=== PATIENT | female | born 1965 | race Caucasian/White ===

== ENCOUNTER → 2016-03-29 | Outpatient (CLI) | payer OTHER ==
[2016-03-29 12:59] LABS: C Reactive Protein 5.4 mg/L (<10.0); Rheumatoid Factor, Qnt <9 IU/mL (<12)
[2016-03-29 13:03] LABS: Hepatitis B Surface Ag Index 0.09
[2016-03-29 13:08] LABS: Hepatitis B Core IgM Index 0.07
[2016-03-29 13:21] LABS: Hepatitis C Virus IgG Index 0.02
[2016-03-29 13:23] LABS: Hepatitis B Surface Antibody Negative (Negative); Hepatitis C Virus IgG Ab Negative (Negative)
[2016-03-29 17:24] LABS: ANA w/Reflex to Titer NEGATIVE (NEGATIVE)
[2016-03-30 05:56] LABS: Cyclic Citrullinated Pep IgG 4 UNITS (<20)
[2016-03-30 07:24] LABS: HIV-1/HIV-2 Ab Screen NONREAC (NON REAC)
[2016-03-30 13:03] LABS: Scleroderma 70 Antibody 2 UNITS (<20)
== END | disposition home or self-care (01) ==
LOC: LABWHC1 11:29
PROVIDERS: ATTEND Internal Medicine
DX: M25.50 Pain in unspecified joint (principal); R06.02 Shortness of breath
CPT/HCPCS: 36415; 82103; 82104; 85652; 86038; 86140; 86200; 86225; 86226; 86235; 86431; 86705; 86706; 86708; 86803; 87340; 87389

== ENCOUNTER 2016-05-04 12:21 | Observation (INO) | payer OTHER ==
[2016-05-04] MEDS ORDERED: ONDANSETRON 4 MG/2 ML VIAL IVP STA (14:14)
[2016-05-04] MEDS ORDERED: SODIUM CHLORIDE 0.9% 1,000 ML IV ONE (14:14)
[2016-05-04] MEDS ORDERED: RX INFO: IV CONTRAST WAS GIVEN 1 EACH MISC MISCELLANE PRN (14:14)
[2016-05-04] MEDS ORDERED: MORPHINE SULFATE 4 MG/ML SYRINGE IVP STA (14:14)
[2016-05-04 14:53] LABS: Basophils % (A) 0 %; CH 32.8; CHCM 32.9; Eosinophils # (A) 0.1 k/uL (0-0.7); Eosinophils % (A) 1 %; HCT 50.3 % (34.0-46.0); HDW 2.35; HGB 16.4 gm/dL (11.4-16.0); Luc # (Auto) 0.09; Luc % (Auto) 1; Lymphocytes # (A) 1.2 k/uL (1.0-4.8); Lymphocytes % (A) 7 %; MCH 32.5 pg (25.0-35.0); MCHC 32.5 g/dL (31.0-37.0); MCV 99.9 fL (80.0-100.0); Mean Platelet Volume 7.3; Monocytes # (A) 0.4 k/uL (0-1.0); Monocytes % (A) 3 %; Neutrophils # (A) 14.1 k/uL (1.3-7.7); Neutrophils % (A) 88 %; RBC 5.04 m/uL (3.80-5.40); RDW 13.4 % (11.5-15.5); WBC 15.9 k/uL (3.8-10.6); WBC (Perox) 15.95
[2016-05-04 15:01] LABS: ALT 28 U/L (9-52); AST 29 U/L (14-36); Alkaline Phosphatase 87 U/L (38-126); Anion Gap 13 mmol/L; Blood Urea Nitrogen 18 mg/dL (7-17); Calcium 9.8 mg/dL (8.4-10.2); Carbon Dioxide 21 mmol/L (22-30); Chloride 108 mmol/L (98-107); Glucose 98 mg/dL (74-99); Non-African American GFR(MDRD) >60 (>60 ml/min/1.73 sqM); Sodium 142 mmol/L (137-145); Total Bilirubin 1.2 mg/dL (0.2-1.3); Total Protein 7.9 g/dL (6.3-8.2)
[2016-05-04 15:03] LABS: Potassium 4.2 mmol/L (3.5-5.1)
[2016-05-04 15:07] LABS: INR 1.1 (<1.1); Partial Thromboplastin Time 24.7 sec (22.0-30.0); Prothrombin Time 10.8 sec (9.0-12.0)
[2016-05-04 15:36] LABS: Appearance,Urine Clear (Clear); Bilirubin,Urine Negative (Negative); Glucose,Urine (UA) Negative (Negative); Ketones,Urine Negative (Negative); Leukocyte Esterase,Urine Negative (Negative); Nitrite,Urine Negative (Negative); Protein,Urine Trace (Negative); Specific Gravity,Urine 1.015 (1.001-1.035); UA Billing (MACRO vs. MICRO) CHEM; Urobilinogen,Urine <2.0 mg/dL (<2.0)
--- NOTE | 2016-05-04 15:56 | CT ---
EXAMINATION TYPE: CT abdomen pelvis w con DATE OF EXAM: 05/04/2016 3:33 PM COMPARISON: NONE HISTORY: 50-year-old female with generalized abdominal pain, nausea, vomiting, diarrhea, and bloody s tool. TECHNIQUE: Contiguous axial scanning of the abdomen and pelvis following administration of 100 ml Omn ipaque 300 IV contrast. Delayed images through the kidneys and coronal/sagittal reconstructions perf ormed. CT DLP: 460.2 mGycm Automated exposure control for dose reduction was used. FINDINGS: The heart is normal size without pericardial effusion. Lung bases clear without pleural effusion. Hypervascular 1.5 cm lesion right hepatic dome that follows blood pool on delayed kidney images sugge stive of a flash filling hemangioma. Additional large partially exophytic 4.7 cm hemangioma showing p eripheral nodular enhancement and fill-in centrally in the liver. Some focal fat along the anterior f alciform ligament. Portal venous system is patent. No biliary ductal dilatation. Gallbladder, adrenal glands, left kidney, spleen, and pancreas within normal limits. 6 mm nonobstructive calculus lower pole right kidney. No dilated small bowel or free air. The appendix is not clearly seen. There is mild diffuse colonic wall thickening beginning from the hepatic flexure distally to the rect um but with more moderate to severe circumferential wall thickening and mural edema beginning from th e upper descending colon through the mid sigmoid colon. Moderate pericolonic inflammation and edema i s present along this level. There is sigmoid diverticulosis also present but inflammatory changes are not particularly centered in this region. No mesenteric or retroperitoneal lymphadenopathy seen. Bladder is nondistended. Uterus and ovaries are visualized. No abnormal fluid collection in the pelvi s or pelvic lymphadenopathy seen. Bones: Mild degenerative changes at the hips. No osseous destructive process. IMPRESSION: 1. PANCOLITIS WITH MODERATE TO SEVERE WALL THICKENING AND INFLAMMATION FROM THE UPPER DESCENDING COLO N TO THE MID SIGMOID. FINDINGS COULD BE INFECTIOUS OR INFLAMMATORY. 2. WHILE THERE IS PROXIMAL TO MID SIGMOID DIVERTICULOSIS, INFLAMMATORY CHANGES ARE NOT LIMITED TO THI S SEGMENT, ARGUING AGAINST ACUTE DIVERTICULITIS. 3. NONOBSTRUCTIVE 6 MM RIGHT RENAL CALCULUS. 4. INCIDENTAL 4.7 CM CENTRAL HEPATIC HEMANGIOMA AND SUSPECTED 1.5 CM HEPATIC DOME FLASH FILLING HEMAN GIOMA.
[2016-05-04] MEDS ORDERED: ONDANSETRON 4 MG/2 ML VIAL IVP PRN (16:49)
[2016-05-04] MEDS ORDERED: NALOXONE 0.4 MG/ML 1 ML VIAL IV PRN (16:49)
[2016-05-04] MEDS ORDERED: PANTOPRAZOLE 40 MG/10 ML VIAL IVP ONE (16:53)
--- NOTE | 2016-05-04 16:54 | ED ---
General Adult HPI - General Chief complaint: GI Bleed Stated complaint: Rectal bleeding Time Seen by Provider: 05/04/16 13:16 Source: patient Mode of arrival: ambulatory Limitations: no limitations - History of Present Illness Initial comments: 50-year-old female presenting for evaluation of GI bleed starting today. She states having multiple bouts of bright red rectal blood per rectum occurring about every 2 hours. She states is associated nausea and vomiting and generalized abdominal pain. Onset was sudden and there are otherwise no associated symptoms. She denies associated chest pain, shortness breath, fevers , chills, lightheadedness, dizziness. She has no history of GI bleeds and denies chronic NSAID use currently although in the past she was taking them more frequently. Last colonoscopy was 25 years ago. He has no GI specialist as outpatient. - Related Data Home Medications Medication Instructions Recorded Confirmed Albuterol Inhaler [Ventolin Hfa 2 puff INHALATION RT-Q6H PRN 12/28/15 05/04/16 Inhaler] Calcium Carbonate [Calcium] 600 mg PO BID 12/28/15 05/04/16 LORazepam [Ativan] 1 mg PO TID 12/28/15 05/04/16 Multivitamin [Multivitamins Adult 1 tab PO DAILY 12/28/15 05/04/16 Gummies] [place]-3 Fatty Acids/Fish Oil [Fish 1 cap PO BID 12/28/15 05/04/16 Oil 1,000 mg Softgel] PARoxetine [Paxil] 20 mg PO DAILY 12/28/15 05/04/16 Flunisolide [Aerospan] 2 puff INHALATION RT-BID 05/04/16 05/04/16 HYDROcodone/APAP 5-325MG [[place] 1 tab PO Q4HR PRN 05/04/16 05/04/16 5-325] predniSONE See Taper PO DAILY 05/04/16 05/04/16 Previous Rx's Medication Instructions Recorded Nicotine 14Mg/24Hr Patch [Habitrol] 1 patch TOPICAL DAILY #30 patch 01/05/16 Allergies Allergy/AdvReac Type Severity Reaction Status Date / Time azithromycin [From Zithromax] Allergy Rash/Hives Verified 05/04/16 14:32 cephalexin [From Keflex] Allergy Rash/Hives Verified 05/04/16 14:32 Review of Systems ROS Statement: Those systems with pertinent positive or pertinent negative responses have been documented in the HPI. ROS Other: All systems not noted in ROS Statement are negative. Constitutional: Denies: fever, chills, weakness Eyes: Denies: eye pain, eye discharge ENT: Denies: ear pain, throat pain Respiratory: Denies: cough, dyspnea Cardiovascular: Denies: chest pain, palpitations Endocrine: Denies: polydipsia, polyuria Gastrointestinal: Reports: abdominal pain, nausea, vomiting, diarrhea, hematochezia. Denies: hematemesis, melena Genitourinary: Denies: urgency, dysuria Musculoskeletal: Denies: back pain, myalgia Skin: Denies: rash, lesions Neurological: Denies: headache, weakness Psychiatric: Denies: anxiety, depression Hematological/Lymphatic: Denies: easy bleeding, easy bruising Past Medical History Past Medical History: COPD, Eye Disorder, Osteoarthritis (OA) Additional Past Medical History / Comment(s): FLOATERS IN EYES. JOHANNE LUNG MASS CURRENTLY. STATED HAD A PNE VACCINE APPROX 3 YEARS AGO NOT SURE OF DATE History of Any Multi-Drug Resistant Organisms: None Reported Past Surgical History: Tubal Ligation Additional Past Surgical History / Comment(s): TUBAL PREG. COLONOSCOPY.BX OF LT UPPER LUNG Past Anesthesia/Blood Transfusion Reactions: No Reported Reaction Past Psychological History: Anxiety, Depression, Panic Disorder Smoking Status: Current every day smoker Past Alcohol Use History: None Reported Additional Past Alcohol Use History / Comment(s): SMOKED 35 PLUS YEARS, 1 PPD AVG, TRYING TO QUIT. Past Drug Use History: Marijuana Additional Drug Use History / Comment(s): OCC MARIJUANA - Past Family History Mother Family Medical History: Myocardial Infarction ([place]) Additional Family Medical History / Comment(s): SEVERAL VT'S,TORREY ONE IN HER LASTE 40'S Father Family Medical History: COPD, Myocardial Infarction ([place]) Additional Family Medical History / Comment(s): EMPHYSEMA General Exam Limitations: no limitations General appearance: alert, in distress (Mild) Head exam: Present: atraumatic, normocephalic Eye exam: Present: normal appearance, PERRL, EOMI Pupils: Present: normal accommodation. Absent: unequal ENT exam: Present: normal exam, normal oropharynx Neck exam: Present: normal inspection. Absent: tenderness Respiratory exam: Present: normal lung sounds bilaterally. Absent: respiratory distress, wheezes, rales, rhonchi, stridor Cardiovascular Exam: Present: normal rhythm, tachycardia, normal heart sounds. Absent: regular rate GI/Abdominal exam: Present: soft, tenderness. Absent: distended, guarding, rebound, rigid Rectal exam: Present: normal rectal tone, heme (+) stool, bloody stool, hemorrhoids. Absent: decreased rectal tone Extremities exam: Present: normal inspection, full ROM Back exam: Present: normal inspection, full ROM Neurological exam: Present: alert, oriented X3, CN II-XII intact, normal gait. Absent: altered Psychiatric exam: Present: normal affect, normal mood Skin exam: Present: warm, dry, intact Course Vital Signs 05/04/16 05/04/16 12:54 16:27 Temperature 97.9 F Pulse Rate 118 H 89 Respiratory 20 16 Rate Blood Pressure 125/72 127/76 O2 Sat by Pulse 98 95 Oximetry EKG Findings - EKG Comments: EKG Findings:: Normal sinus rhythm with nonspecific ST and T-wave abnormalities with ventricular rate of 98, BRAD 1:30 QRS 72, QT/QTC 328/418. Medical Decision Making - Medical Decision Making 50-year-old female presented for evaluation of bright red blood per rectum that started this morning and continued roughly every 2 hours throughout the rest of the day. She states she is unsure if she has any hemorrhoids or fissures and further confirms that she has not had symptoms like this for 25 years. On physical examination she is in mild distress laying on the bed and does not appear pale. She is tachycardic but normotensive. There is generalized abdominal tenderness to palpation but abdomen is soft without peritoneal signs of guarding, rigidity, or rebound. Her history is for bright red blood per rectum and this is likely due to lower GI etiology however considering fast transit from upper GI bleed is also on differential. She does have vomiting without hematemesis however. We'll obtain labs, EKG, chest x-ray , CT abdomen, and provide IV fluids pain control and Zofran. Labs significant for leukocytosis and occult blood positive stool. Digital rectal exam showed hemorrhoids however there was gross blood from within the rectal vault with small clots. CT abdomen shows pancolitis with moderate to severe wall thickening and inflammation from the upper descending colon to the mid sigmoid. There is also an incidental finding of a 4.7 cm central hepatic hemangioma and suspected 1.5 cm hepatic dome flash filling hemangioma. The patient was informed of these findings including the incidental an angioma. She is further informed that she be omitted for further treatment and evaluation. Dr. Claros was updated on the status of this patient and accepted admission with request for consult with GI. Admission order placed in bed request submitted. - Lab Data Result diagrams: 05/04/16 14:00 05/04/16 14:00 Lab Results 05/04/16 05/04/16 05/04/16 Range/Units 14:00 14:00 14:00 WBC 15.9 H (3.8-10.6) k/uL RBC 5.04 (3.80-5.40) m/uL Hgb 16.4 H (11.4-16.0) gm/dL Hct 50.3 H (34.0-46.0) % MCV 99.9 (80.0-100.0) fL MCH 32.5 (25.0-35.0) pg MCHC 32.5 (31.0-37.0) g/dL RDW 13.4 (11.5-15.5) % Plt Count 160 (150-450) k/uL Neutrophils % 88 % Lymphocytes % 7 % Monocytes % 3 % Eosinophils % 1 % Basophils % 0 % Neutrophils # 14.1 H (1.3-7.7) k/uL Lymphocytes # 1.2 (1.0-4.8) k/uL Monocytes # 0.4 (0-1.0) k/uL Eosinophils # 0.1 (0-0.7) k/uL Basophils # 0.0 (0-0.2) k/uL PT (9.0-12.0) sec INR (<1.1) APTT (22.0-30.0) sec Sodium 142 (137-145) mmol/L Potassium 4.2 (3.5-5.1) mmol/L Chloride 108 H (98-107) mmol/L Carbon Dioxide 21 L (22-30) mmol/L Anion Gap 13 mmol/L BUN 18 H (7-17) mg/dL Creatinine 0.83 (0.52-1.04) mg/dL Est GFR (MDRD) Af Amer >60 (>60 ml/min/1.73 sqM) Est GFR (MDRD) Non-Af >60 (>60 ml/min/1.73 sqM) Glucose 98 (74-99) mg/dL Plasma Lactic Acid Fredis (0.7-2.0) mmol/L Calcium 9.8 (8.4-10.2) mg/dL Total Bilirubin 1.2 (0.2-1.3) mg/dL AST 29 (14-36) U/L ALT 28 (9-52) U/L Alkaline Phosphatase 87 (38-126) U/L Troponin I (0.000-0.034) ng/mL NT-Pro-B Natriuret Pep 630 pg/mL Total Protein 7.9 (6.3-8.2) g/dL Albumin 4.7 (3.5-5.0) g/dL Lipase 55 (23-300) U/L Urine Color Urine Appearance (Clear) Urine pH (5.0-8.0) Ur Specific [place] (1.001-1.035) Urine Protein (Negative) Urine Glucose (UA) (Negative) Urine Ketones (Negative) Urine Blood (Negative) Urine Nitrite (Negative) Urine Bilirubin (Negative) Urine Urobilinogen (<2.0) mg/dL Ur Leukocyte Esterase (Negative) Stool Occult Blood (Negative) Blood Type Blood Type Recheck Antibody Screen Spec Expiration Date 05/04/16 05/04/16 05/04/16 Range/Units 14:00 14:00 15:14 WBC (3.8-10.6) k/uL RBC (3.80-5.40) m/uL Hgb (11.4-16.0) gm/dL Hct (34.0-46.0) % MCV (80.0-100.0) fL MCH (25.0-35.0) pg MCHC (31.0-37.0) g/dL RDW (11.5-15.5) % Plt Count (150-450) k/uL Neutrophils % % Lymphocytes % % Monocytes % % Eosinophils % % Basophils % % Neutrophils # (1.3-7.7) k/uL Lymphocytes # (1.0-4.8) k/uL Monocytes # (0-1.0) k/uL Eosinophils # (0-0.7) k/uL Basophils # (0-0.2) k/uL PT 10.8 (9.0-12.0) sec INR 1.1 (<1.1) APTT 24.7 (22.0-30.0) sec Sodium (137-145) mmol/L Potassium (3.5-5.1) mmol/L Chloride (98-107) mmol/L Carbon Dioxide (22-30) mmol/L Anion Gap mmol/L BUN (7-17) mg/dL Creatinine (0.52-1.04) mg/dL Est GFR (MDRD) Af Amer (>60 ml/min/1.73 sqM) Est GFR (MDRD) Non-Af (>60 ml/min/1.73 sqM) Glucose (74-99) mg/dL Plasma Lactic Acid Fredis (0.7-2.0) mmol/L Calcium (8.4-10.2) mg/dL Total Bilirubin (0.2-1.3) mg/dL AST (14-36) U/L ALT (9-52) U/L Alkaline Phosphatase (38-126) U/L Troponin I <0.012 (0.000-0.034) ng/mL NT-Pro-B Natriuret Pep pg/mL Total Protein (6.3-8.2) g/dL Albumin (3.5-5.0) g/dL Lipase (23-300) U/L Urine Color Yellow Urine Appearance Clear (Clear) Urine pH 7.0 (5.0-8.0) Ur Specific [place] 1.015 (1.001-1.035) Urine Protein Trace H (Negative) Urine Glucose (UA) Negative (Negative) Urine Ketones Negative (Negative) Urine Blood Negative (Negative) Urine Nitrite Negative (Negative) Urine Bilirubin Negative (Negative) Urine Urobilinogen <2.0 (<2.0) mg/dL Ur Leukocyte Esterase Negative (Negative) Stool Occult Blood (Negative) Blood Type Blood Type Recheck Antibody Screen Spec Expiration Date 05/04/16 05/04/16 05/04/16 Range/Units 15:56 16:13 17:32 WBC (3.8-10.6) k/uL RBC (3.80-5.40) m/uL Hgb (11.4-16.0) gm/dL Hct (34.0-46.0) % MCV (80.0-100.0) fL MCH (25.0-35.0) pg MCHC (31.0-37.0) g/dL RDW (11.5-15.5) % Plt Count (150-450) k/uL Neutrophils % % Lymphocytes % % Monocytes % % Eosinophils % % Basophils % % Neutrophils # (1.3-7.7) k/uL Lymphocytes # (1.0-4.8) k/uL Monocytes # (0-1.0) k/uL Eosinophils # (0-0.7) k/uL Basophils # (0-0.2) k/uL PT (9.0-12.0) sec INR (<1.1) APTT (22.0-30.0) sec Sodium (137-145) mmol/L Potassium (3.5-5.1) mmol/L Chloride (98-107) mmol/L Carbon Dioxide (22-30) mmol/L Anion Gap mmol/L BUN (7-17) mg/dL Creatinine (0.52-1.04) mg/dL Est GFR (MDRD) Af Amer (>60 ml/min/1.73 sqM) Est GFR (MDRD) Non-Af (>60 ml/min/1.73 sqM) Glucose (74-99) mg/dL Plasma Lactic Acid Fredis 0.9 (0.7-2.0) mmol/L Calcium (8.4-10.2) mg/dL Total Bilirubin (0.2-1.3) mg/dL AST (14-36) U/L ALT (9-52) U/L Alkaline Phosphatase (38-126) U/L Troponin I (0.000-0.034) ng/mL NT-Pro-B Natriuret Pep pg/mL Total Protein (6.3-8.2) g/dL Albumin (3.5-5.0) g/dL Lipase (23-300) U/L Urine Color Urine Appearance (Clear) Urine pH (5.0-8.0) Ur Specific [place] (1.001-1.035) Urine Protein (Negative) Urine Glucose (UA) (Negative) Urine Ketones (Negative) Urine Blood (Negative) Urine Nitrite (Negative) Urine Bilirubin (Negative) Urine Urobilinogen (<2.0) mg/dL Ur Leukocyte Esterase (Negative) Stool Occult Blood Positive H (Negative) Blood Type B Positive Blood Type Recheck No Antibody Screen NEGATIVE Spec Expiration Date 05/07/2016 7199 Disposition Clinical Impression: GI bleed, Abdominal pain, Nausea and vomiting Disposition: ADMITTED IP TO THIS [facility] Referrals: Sebastián Claros MD [Primary Care Provider] - 1-2 days Decision to Admit Reason: Admit from EC Decision Date: 05/04/16 Decision Time: 16:54
[2016-05-04] MEDS: KETOROLAC 30 MG/ML 1 ML VIAL IVP PRN (18:42)
[2016-05-04] MEDS: SODIUM CHLORIDE 0.9% 1,000 ML IV SCH (18:42)
[2016-05-04] MEDS ORDERED: LEVOFLOXACIN 250MG-D5W PMX 250 MG in DEXTROSE/WATER 1 50ML.BAG IVPB STA (20:38)
[2016-05-04] MEDS ORDERED: metroNIDAZOLE-NS PMX 500 MG in SALINE 1 100ML.BAG IVPB STA (20:38)
[2016-05-04] MEDS: ALBUTEROL NEBULIZED 2.5 MG/3 ML INHALATION PRN (20:41)
[2016-05-04] MEDS: BUDESONIDE 0.5 MG/2 ML NEBU INHALATION SCH (20:41)
[2016-05-04] MEDS: LORazepam 1 MG TAB PO SCH (21:05)
[2016-05-04] MEDS: CALCIUM CARB-VIT D 500MG-200UN 1 EACH TAB PO SCH (21:12)
[2016-05-04] MEDS: MORPHINE SULFATE 4 MG/ML SYRINGE IV PRN (21:54)
[2016-05-05] MEDS: SODIUM CHLORIDE 0.9% 1,000 ML IV SCH ×2 (05:38→13:57)
[2016-05-05] MEDS: ALBUTEROL NEBULIZED 2.5 MG/3 ML INHALATION PRN ×2 (07:34→20:53)
[2016-05-05] MEDS: BUDESONIDE 0.5 MG/2 ML NEBU INHALATION SCH ×2 (07:34→20:53)
[2016-05-05] MEDS: NICOTINE 14MG/24HR PATCH TRANSDERM SCH (08:18)
[2016-05-05] MEDS: LORazepam 1 MG TAB PO SCH ×3 (08:18→21:28)
[2016-05-05] MEDS: CALCIUM CARB-VIT D 500MG-200UN 1 EACH TAB PO SCH ×2 (08:19→21:28)
[2016-05-05] MEDS: KETOROLAC 30 MG/ML 1 ML VIAL IVP PRN ×2 (08:22→15:03)
--- NOTE | 2016-05-05 08:34 | P.CONS ---
History of Present Illness - Reason for Consult Consult date: 05/05/16 Rectal bleeding Requesting physician: Sebastián Claros - History of Present Illness 50-year-old female with a history of benign left upper lung mass status post wedge biopsy December 2015, anxiety, depression, I disorder, long-standing nicotine cigarette dependency, occasional marijuana, and COPD. Presents with acute rectal bleeding that started yesterday morning with crampy abdominal pain. Patient had several episodes of bright red blood per rectum; 3 episodes this morning. Denies fever, chills, or weight loss. No history of rectal bleeding. Last colonoscopy 25 years ago. No recent antibiotics, travels, sick contacts, or changes in medications. No excessive usage of aspirin or NSAIDs. No alcohol. White count 15.9. Hemoccult 16.4. INR 1.1 platelet 160. BUN 18. Creatinine 0.8. CT abdomen and pelvis pancolitis moderate to severe wall thickening inflammation upper descending colon to mid sigmoid. Sigmoid diverticulosis; acute diverticulitis less favored. 4.7 cm central hepatic hemangioma and 1.5 cm hepatic dome hemangioma. Liver enzymes normal. Hepatitis panel/HIV nonreactive March 2016. Review of Systems Constitutional: Denies fever, chills, sweats, weight gain, or loss. HEENT: Negative for migraines, blurred vision or loss, earaches, drainage, tinnitus, oral mucosal lesions, dysphagia, or odynophagia. CARDIAC: Negative for chest pain, arrhythmias, or palpitation. RESPIRATORY: History of left upper lobe benign lung mass. Long-standing nicotine cigarette dependency. Occasional marijuana. Negative for shortness of breath, hemoptysis, cough, or sputum production. GI: See HPI for pertinent findings. : Negative for hematuria, urgency, frequency, polyuria, or dysuria. GYNc: Denies possibility of . Negative vaginal discharge. MUSCULOSKELETAL: Negative for muscle aches, swelling, arthritis, and arthralgias. NEUROLOGIC: Negative for stroke or TIA. ENDOCRINE: Negative for thyroid problems. SKIN: Negative for rash or itching. PSYCHIATRIC: depression and anxiety All systems: negative (See HPI) Past Medical History Past Medical History: COPD, Eye Disorder, Osteoarthritis (OA) Additional Past Medical History / Comment(s): FLOATERS IN EYES. JOHANNE LUNG MASS CURRENTLY. STATED HAD A PNE VACCINE APPROX 3 YEARS AGO NOT SURE OF DATE History of Any Multi-Drug Resistant Organisms: None Reported Past Surgical History: Tubal Ligation Additional Past Surgical History / Comment(s): TUBAL PREG. COLONOSCOPY.BX OF LT UPPER LUNG Past Anesthesia/Blood Transfusion Reactions: No Reported Reaction Past Psychological History: Anxiety, Depression, Panic Disorder Additional Psychological History / Comment(s): PT LIVES WITH HER SON, IS INDEPENDANT, NO MEDICAL EQUIPMENT, NO OUTSIDE SERVICES. HAS 2 STEPS INTO HOME LIVES ON ONE LEVEL. Smoking Status: Current every day smoker Past Alcohol Use History: None Reported Additional Past Alcohol Use History / Comment(s): SMOKED 35 PLUS YEARS, 1 PPD AVG, TRYING TO QUIT. Past Drug Use History: Marijuana Additional Drug Use History / Comment(s): OCC MARIJUANA - Past Family History Mother Family Medical History: Myocardial Infarction ([place]) Additional Family Medical History / Comment(s): SEVERAL SC'S,TORREY ONE IN HER LASTE 40'S Father Family Medical History: COPD, Myocardial Infarction ([place]) Additional Family Medical History / Comment(s): EMPHYSEMA Medications and Allergies Home Medications Medication Instructions Recorded Confirmed Type Albuterol Inhaler [Ventolin Hfa 2 puff INHALATION RT-Q6H PRN 12/28/15 05/04/16 History Inhaler] Calcium Carbonate [Calcium] 600 mg PO BID 12/28/15 05/04/16 History LORazepam [Ativan] 1 mg PO TID 12/28/15 05/04/16 History Multivitamin [Multivitamins Adult 1 tab PO DAILY 12/28/15 05/04/16 History Gummies] [place]-3 Fatty Acids/Fish Oil [Fish 1 cap PO BID 12/28/15 05/04/16 History Oil 1,000 mg Softgel] PARoxetine [Paxil] 20 mg PO DAILY 12/28/15 05/04/16 History Flunisolide [Aerospan] 2 puff INHALATION RT-BID 05/04/16 05/04/16 History HYDROcodone/APAP 5-325MG [[place] 1 tab PO Q4HR PRN 05/04/16 05/04/16 History 5-325] predniSONE See Taper PO DAILY 05/04/16 05/04/16 History Allergies Allergy/AdvReac Type Severity Reaction Status Date / Time azithromycin [From Zithromax] Allergy Rash/Hives Verified 05/04/16 14:32 cephalexin [From Keflex] Allergy Rash/Hives Verified 05/04/16 14:32 Physical Exam Vitals: Vital Signs Temp Pulse Pulse Resp BP Pulse Ox 05/05/16 07:47 88 05/05/16 07:36 94 05/05/16 07:00 98.5 F 91 20 118/65 97 05/04/16 21:25 98.6 F 92 17 115/65 05/04/16 20:55 71 05/04/16 20:44 71 05/04/16 19:42 16 Intake and Output 05/04/16 05/05/16 05/05/16 22:59 06:59 14:59 Intake Total 0 Balance 0 Intake: Oral 0 Other: Voiding Method Toilet Toilet # Voids 0 1 # Bowel Movements 0 1 Weight 68.039 kg General appearance: The patient is alert, oriented, tearful crying in bed anxious. HET: Head is normocephalic and atraumatic. Pupils are equal and reactive. Oropharynx is clear without lesions. Neck: Supple without lymphadenopathy. Trachea midline. Heart: S1 S2. Regular rate and rhythm. Lungs: No crackles or wheezes are heard. Abdomen: Soft, diffuse mild tenderness across bilateral lower abdomen greater than left and right, nondistended with bowel sounds. No peritoneal signs. No palpable organomegaly or masses. Extremities: Normal skin color and turgor. No cyanosis, rash, ulceration, clubbing, or edema. Radial and pedal pulses are 2/4 bilaterally. Neurological: No focal deficits. Strength and sensation are grossly intact. Results CBC & Chem 7: 05/04/16 14:00 05/04/16 14:00 CT scan - abdomen: report reviewed (Review Dr. Ramírez) CT scan - pelvis: report reviewed (Reviewed by Dr. Ramírez) Assessment and Plan (1) Rectal bleeding Narrative/Plan: Suspect ischemic colitis possible infectious possible inflammatory Status: Acute (2) Colitis Status: Acute (3) Liver hemangioma Status: Chronic (4) GI bleed Status: Acute (5) Cigarette nicotine dependence Status: Chronic (6) Colon, diverticulosis Status: Chronic Plan: 1. IV antibiotics. Stool studies. Clostridium difficile toxin testing. 2. Nothing by mouth except medications and ice chips. 3. CBC monitoring. 4. Colonoscopy recommended; timing in the next 48-72 hours based on clinical course. Patient is still expressing quite a bit of abdominal pain and active bleeding would prefer her symptoms to settle down before proceeding with endoscopic exam. 5. Sed rate CRP. Thank you for this kind referral and the opportunity to participate in the care of your patient. This consultation was discussed with Dr. Ramírez. The impression and plan of care have been directed as dictated.
[2016-05-05 08:43] LABS: Basophils % (A) 0 %; CH 32.6; CHCM 32.4; Eosinophils # (A) 0.2 k/uL (0-0.7); Eosinophils % (A) 2 %; HCT 42.2 % (34.0-46.0); HDW 2.33; HGB 13.5 gm/dL (11.4-16.0); Luc % (Auto) 1; Lymphocytes # (A) 1.3 k/uL (1.0-4.8); Lymphocytes % (A) 10 %; MCH 32.4 pg (25.0-35.0); MCHC 32.1 g/dL (31.0-37.0); MCV 100.9 fL (80.0-100.0); Monocytes # (A) 0.5 k/uL (0-1.0); Monocytes % (A) 4 %; Neutrophils # (A) 10.6 k/uL (1.3-7.7); Neutrophils % (A) 84 %; RBC 4.18 m/uL (3.80-5.40); RDW 13.4 % (11.5-15.5); WBC 12.7 k/uL (3.8-10.6); WBC (Perox) 13.47
[2016-05-05] MEDS ORDERED: PARoxetine 20 MG TAB PO SCH (09:00)
[2016-05-05 09:12] LABS: ALT 20 U/L (9-52); AST 17 U/L (14-36); Alkaline Phosphatase 66 U/L (38-126); Anion Gap 9 mmol/L; Blood Urea Nitrogen 18 mg/dL (7-17); Carbon Dioxide 24 mmol/L (22-30); Chloride 108 mmol/L (98-107); Glucose 99 mg/dL (74-99); Magnesium 1.9 mg/dL (1.6-2.3); Non-African American GFR(MDRD) >60 (>60 ml/min/1.73 sqM); Phosphorous 2.9 mg/dL (2.5-4.5); Potassium 3.9 mmol/L (3.5-5.1); Sodium 141 mmol/L (137-145); Total Protein 6.1 g/dL (6.3-8.2)
[2016-05-05] MEDS: MORPHINE SULFATE 4 MG/ML SYRINGE IV PRN (21:28)
[2016-05-05 22:23] VITALS: TEMP 97.4
[2016-05-06] MEDS: SODIUM CHLORIDE 0.9% 1,000 ML IV SCH (01:15)
[2016-05-06] MEDS: NICOTINE 14MG/24HR PATCH TRANSDERM SCH (07:09)
--- NOTE | 2016-05-06 07:10 | HP ---
DATE OF ADMISSION: CHIEF COMPLAINT: Bright red rectal bleeding. HISTORY OF PRESENT ILLNESS: This is another admission for this 50-year-old white female. She started to have bright red rectal bleeding. She is also had some lower abdominal discomfort more over the mid lower abdomen and off to the left slightly. She has had a problem with bleeding in the past, was many years ago. She believes that she has been told that in the past that she had colitis. She also has chronic obstructive pulmonary disease. She has had no vomiting, diarrhea, bloating, melena, etc. She has had no urinary symptoms except she is not sure if she did not see some blood in her urine. She has had no vaginal discharge. REVIEW OF SYSTEMS: She has had no other signs or symptoms. Past medical history, family history and personal and social history reveal only that she recently underwent lung biopsy, which was thought to be due to neoplasia and now she is being worked up and treated for a possible immune or autoimmune disease. She is on prednisone. She still smokes heavily. PHYSICAL EXAMINATION: Blood pressure 114/76, pulse 96, respirations of 33 and she is afebrile. In general she appeared to be slender and in no acute distress. Skin color is normal. Skin is warm and dry. Lymph nodes are not enlarged. Head, ears, eyes, nose, mouth, and throat are normal. Neck veins not distended. Thyroid is not enlarged. Chest is clear. The cardiac exam is normal. The abdomen is soft and slightly tender in the mid lower abdomen and left lower quadrant. There are no masses. IMPRESSION: 1. Lower gastrointestinal bleed. 2. Possible diverticulosis. 3. Questionable diverticulitis. 4. History of colitis. 5. 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 PLAN: 1. Bed rest. 2. IV fluids. 3. Consult Gastroenterology.
[2016-05-06 07:16] VITALS: BP 121/68; PULSE 85; RESP 16
--- NOTE | 2016-05-06 07:25 | PN ---
DATE OF SERVICE: 05/05/2016 CHIEF COMPLAINT: Lower abdominal pain and rectal bleeding. HISTORY OF PRESENT ILLNESS: This lady is still having some discomfort, but bleeding has slowed. PHYSICAL EXAMINATION: She is linseed oil press tender in the lower abdomen and there is no mass on palpation, no rebound or referred tenderness. IMPRESSION: 1. Bright red rectal bleeding. 2. Questionable colitis. 3. Chronic obstructive pulmonary disease. 4. Autoimmune disease. PLAN: Await recommendations of GI.
[2016-05-06] MEDS: BUDESONIDE 0.5 MG/2 ML NEBU INHALATION SCH (07:50)
--- NOTE | 2016-05-08 09:51 | DS ---
DATE OF ADMISSION: 05/04/2016 DATE OF DISCHARGE: 05/06/2016 CHIEF COMPLAINT: Abdominal pain. HISTORY OF PRESENT ILLNESS AND PHYSICAL EXAM: Details of this lady's history and physical can be found in the initial work-up. LABORATORY STUDIES: While she was in the hospital she had laboratory studies, the details can be found in the laboratory section of her chart. COURSE IN THE HOSPITAL: After admission, she was placed on bed rest and started on intravenous fluids and was seen by GI. Originally it was thought that she should have an endoscopy because she bright red rectal bleeding. However, she also had some lower abdominal tenderness and was wondering if she had colitis or possibly diverticulitis. The decision was made to wait for a few days for her to settle down and then SHE SIGNED HERSELF OUT AGAINST [facility] on the morning of 05/06/2016. FINAL DIAGNOSES: 1. Hematochezia. 2. Lower abdominal pain. 3. Chronic obstructive pulmonary disease. OPERATIONS: None. CONSULTATIONS: GI. She is improved.
== END 2016-05-06 08:16 | disposition left against medical advice (07) ==
LOC: EC 12:21 → 4MS4W 16:49
PROVIDERS: ADMIT Family Medicine; ATTEND Family Medicine
DX: K92.1 Melena (principal); R10.30 Lower abdominal pain, unspecified; J44.9 Chronic obstructive pulmonary disease, unspecified; R10.32 Left lower quadrant pain; F32.9 Major depressive disorder, single episode, unspecified; F41.9 Anxiety disorder, unspecified; F17.210 Nicotine dependence, cigarettes, uncomplicated; D18.03 Hemangioma of intra-abdominal structures; Z88.1 Allergy status to other antibiotic agents; Z79.899 Other long term (current) drug therapy; Z79.51 Long term (current) use of inhaled steroids; Z79.52 Long term (current) use of systemic steroids; Z82.5 Family history of asthma and other chronic lower respiratory diseases; Z82.49 Family history of ischemic heart disease and other diseases of the circulatory system; M35.9 Systemic involvement of connective tissue, unspecified
CPT/HCPCS: 96375 ×4; 96361 ×2; 99285 ×2; 36415; 94640 ×3; 93005; 86900; 86901; 83880; 80053 ×2; 85652; 83605; 83690 ×2; 83735; 84100; 84484; 85025 ×2; 85610; 85730; 86850; 86140; 82272; 81003; 87324; 87045; 89055; 87046; 74177; G0378 ×3; S4990 ×2; J2270 ×2; J2405; J1956; J1885 ×2; Q9967; C9113; 96367; 96376

== ENCOUNTER → 2016-09-14 | Outpatient (CLI) | payer OTHER ==
--- NOTE | 2016-09-14 11:00 | CT ---
EXAMINATION TYPE: CT chest wo con DATE OF EXAM: 09/14/2016 COMPARISON: NONE HISTORY: Patient complains of productive cough and difficulty breathing. CT DLP: 139.8 mGycm, Automated exposure control for dose reduction was used. CONTRAST: Performed injected with 0 mL of Omnipaque 300. TECHNIQUE: Axial images were obtained at 5 mm thick sections. Reconstructed images are reviewed on [employer] computer in the coronal plane. FINDINGS: Portion of the thyroid visualized is normal. Punctate peripheral nodule measuring 0.5 cm is in the posterior lateral right apex. Series 4 image 12 . Emphysematous changes are within the lung lowe greater on the anterior right. Some scarring is li anne-marie present within the anterior right upper lung field. There is thickening along the left midlung which appears to be related to the major fissure. This are a is enlarging from prior study. Some underlying spiculation appears to be present estimated to measu re 1.2 x 0.9 cm in size. Series 4 image 26. This may extend to a suture line slightly more inferior. Emphysematous bulla are within the lingula. There is thickening within the lingula which appears thicker than prior study. This is currently avis mated to measure 0.9 cm in thickness. Series 4 image 39. A previous masslike consolidation in the mid peripheral left lung is smaller than prior study and may measure 0.7 cm compared to the 1.8 cm previous. Series 4 image 29. A new area of spiculation and increased density estimated to measure 1.5 x 2.0 cm in the right middle lobe infrahilar region is evident. Series 4 image 42. Infectious etiology or underlying mass could b e considered. Scattered small lymph nodes are present. No enlarged mediastinal adenopathy is present. The ascendin g aorta diameter at the level of the main pulmonary artery is 3.1 cm. The main pulmonary artery diam eter at the bifurcation is 2.[address] sections are obtained through the upper abdomen. The hypodense area in this noncontrast st udy near the inferior vena cava region is again evident without enlargement. IMPRESSIONS: 1. Changing lung findings. The previous left midlung mass is smaller. A more superior spiculated area has enlarged over the interval and some lingular stranding has thickened over the interval. A new ar ea of pneumonitis within the right middle lobe right infrahilar region. Findings are nonspecific. Inf ectious etiologies and benign and malignant masses are within the differential.
== END | disposition home or self-care (01) ==
LOC: RADCTMAIN 09:15
PROVIDERS: ATTEND Internal Medicine Pulmonary Disease
DX: J18.9 Pneumonia, unspecified organism (principal); R91.8 Other nonspecific abnormal finding of lung field
CPT/HCPCS: 71250

== ENCOUNTER → 2017-03-02 | Outpatient (CLI) | payer OTHER ==
--- NOTE | 2017-03-02 15:53 | US ---
EXAMINATION TYPE: US kidneys/renal and bladder DATE OF EXAM: 03/02/2017 COMPARISON: Correlation CT 05/04/2016 CLINICAL HISTORY: 51-year-old female R31.9 Hematuria, N92 Spotting. TECHNIQUE: Multiple sonographic images of the kidneys and bladder are obtained. FINDINGS: Right Kidney: 10.3 x 3.5 x 5.1 cm without hydronephrosis. There is an 8 mm shadowing calculus at the lower pole. Left Kidney: 11.0 x 4.2 x 6.5 cm without hydronephrosis. Limited visualization of the lower pole due to bowel gas shadowing. Bladder grossly unremarkable. Bilateral Jets seen: Yes IMPRESSION: 1. No hydronephrosis. 2. An 8 mm nonobstructive calculus lower pole right kidney.
--- NOTE | 2017-03-02 16:00 | US ---
EXAMINATION TYPE: US pelvis complete transvag DATE OF EXAM: 03/02/2017 COMPARISON: CT CLINICAL HISTORY: R31.9 Hematuria, N92 Spotting. TECHNIQUE: Transvaginal (TV) and Transabdominal (TA) endovaginal scanning performed for better evalu ation of the uterus and endometrium Date of LMP: 5 years ago EXAM MEASUREMENTS: Uterus: 5.3 x 2.9 x 4.1 cm Endometrial Stripe: 0.3 cm Right Ovary: not identified cm Left Ovary: 1.2 x 0.8 x 0.8 cm patient states history of tubal and believes one of her ovaries has been removed. 1. Uterus: Anteverted wnl 2. Endometrium: wnl 3. Right Ovary: not definitely identified 4. Left Ovary: wnl. 5. Bilateral Adnexa: peristalsing bowel noted rt adnexa. 6. Posterior cul-de-sac: no free fluid IMPRESSION: Nonvisualization of the right ovary. Otherwise negative exam.
== END | disposition home or self-care (01) ==
LOC: RADUSWWP 14:18
PROVIDERS: ATTEND Family Medicine
DX: N20.0 Calculus of kidney (principal); R31.9 Hematuria, unspecified; M54.5 Low back pain; Z88.1 Allergy status to other antibiotic agents
CPT/HCPCS: 76770; 76830; 76856

== ENCOUNTER → 2017-06-05 | Outpatient (CLI) | payer OTHER ==
[2017-06-05 13:24] LABS: HCT 38.3 % (34.0-46.0); HGB 13.2 gm/dL (11.4-16.0); MCHC 34.5 g/dL (31.0-37.0); MCV 95.6 fL (80.0-100.0); Mean Platelet Volume 7.2; Platelet Count 214 k/uL (150-450); RDW 13.2 % (11.5-15.5)
[2017-06-05 13:44] LABS: C Reactive Protein 7.3 mg/L (<10.0)
[2017-06-05 13:48] LABS: Appearance,Urine Clear (Clear); Bilirubin,Urine Negative (Negative); Blood,Urine Small (Negative); Color,Urine Light Yellow; Glucose,Urine (UA) Negative (Negative); Ketones,Urine Negative (Negative); Leukocyte Esterase,Urine Negative (Negative); Mucus,Urine Rare /hpf; Nitrite,Urine Negative (Negative); PH, Urine 6.5 (5.0-8.0); Protein,Urine Negative (Negative); RBC,Urine 3 /hpf (0-5); Specific Gravity,Urine 1.005 (1.001-1.035); Urobilinogen,Urine <2.0 mg/dL (<2.0); WBC,Urine 1 /hpf (0-5)
[2017-06-05 14:32] LABS: Erythrocyte Sedimentation Rate 19 mm/hr (0-20)
[2017-06-05 19:09] LABS: Rheumatoid Factor 6 IU/mL (0-15)
[2017-06-05 20:36] LABS: Anti-DNA, DS unit <1.0 IU/mL; Cardiolipin Ab IgG Interp NEGATIVE (NEGATIVE); Cardiolipin Ab IgM Interp NEGATIVE (NEGATIVE); Cardiolipin IgA Antibody 1.9 U/mL; Cardiolipin IgM Antibody 6.7 U/mL; Cyclic Citrullinated Pep IgG NEGATIVE (NEGATIVE); DNA Double-Stranded NEGATIVE (NEGATIVE); RNP 0.2 AI
[2017-06-05 20:45] LABS: Urine Alcohol Negative (Negative); Urine Barbiturate Negative (Negative); Urine Cocaine Negative (Negative); Urine Methadone Negative (Negative); Urine Opiates Negative (Negative); Urine Phencyclidine Negative (Negative)
[2017-06-06 11:22] LABS: APTT 44 Sec(s) (<43); APTT 1:1 Mix 40 Sec(s) (<43); Dilute Russell Viper Venom 38 Sec(s) (<44)
[2017-06-06 13:51] LABS: C-ANCA <1:20 Titer (<1:20); P-ANCA <1:20 Titer (<1:20)
[2017-06-07 05:19] LABS: Aldolase 3.7 U/L (1.2-7.6)
== END | disposition home or self-care (01) ==
LOC: LABWHC1 12:17
PROVIDERS: ATTEND Student in an Organized Health Care Education/Training Program
DX: J84.116 Cryptogenic organizing pneumonia (principal)
CPT/HCPCS: 36415; 80306; 81001; 82085; 82542; 82550; 82570; 82657; 82784; 83516; 84156; 85027; 85613; 85652; 85730; 86038; 86140; 86146; 86147; 86160; 86200; 86225; 86235; 86255; 86431

== ENCOUNTER → 2018-12-18 | Outpatient (CLI) | payer OTHER | END | disposition home or self-care (01) | LOC: LABWHC1 09:12 | PROVIDERS: ATTEND Nurse Practitioner Acute Care | DX: I49.9 Cardiac arrhythmia, unspecified (principal) | CPT/HCPCS: 36415; 93005 ==

== ENCOUNTER → 2019-01-06 | Outpatient (CLI) | payer OTHER ==
--- NOTE | 2019-01-06 11:24 | US ---
EXAMINATION TYPE: US liver DATE OF EXAM: 01/06/2019 COMPARISON: CT 05/04/2016 CLINICAL HISTORY: R19.00 LIVER LESION, ABD PELVIC MASS. Liver lesions. EXAM MEASUREMENTS: Liver Length: 17.3 cm Gallbladder Wall: 0.1 cm CBD: 0.4 cm Right Kidney: 9.7 x 4.9 x 3.6 cm Pancreas: Tail only partially visualized Liver: Central heterogenous hepatic lesion seen near hepatic veins and IVC= 5.4 x 3.8 x 3.8 cm. Pre vious measurement estimated at 5.0 x 4.7 x 3.8 cm. Unable to visualize previous hepatic dome lesion. Gallbladder: wnl Evidence for sonographic Corado's sign: neg CBD: wnl Right Kidney: lower pole echogenic focus- 0.9 x 0.8 cm IMPRESSION: 1. Hepatic lesion near the vascular structures mid liver. This may have slightly enlarged over the in terval from 2017. 2. Stable nonobstructing inferior pole left renal stone
== END | disposition home or self-care (01) ==
LOC: RADUSWWP 10:36
PROVIDERS: ATTEND Family Medicine
DX: K76.9 Liver disease, unspecified (principal); Z88.1 Allergy status to other antibiotic agents
CPT/HCPCS: 76705

== ENCOUNTER 2019-01-11 08:29 | Emergency (ER) | payer OTHER ==
[2019-01-11] MEDS ORDERED: KETOROLAC 30 MG/ML 1 ML VIAL IVP STA (08:49)
--- NOTE | 2019-01-11 09:00 | ED ---
General Adult HPI - General Chief complaint: Chest Pain Stated complaint: CHEST PAIN Time Seen by Provider: 01/11/19 08:38 Source: patient, RN notes reviewed, old records reviewed Mode of arrival: ambulatory Limitations: no limitations - History of Present Illness Initial comments: 53-year-old female presents for evaluation of anterior chest pain. Pain is been present for several months. She's been seen by cardiology and had an outpatient stress test which was reported as normal according to the patient. Pain is been constant in nature central and left-sided chest pain. She does report some dyspnea which she attributes to her COPD. She denies radiating symptoms. Denies vomiting. Denies diaphoresis. Denies cough or fever. Denies lower ex tremity pain or swelling. Denies history DVT or PE. - Related Data Home Medications Medication Instructions Recorded Confirmed Albuterol Inhaler [Ventolin Hfa 2 puff INHALATION RT-Q6H PRN 12/28/15 05/04/16 Inhaler] Calcium Carbonate [Calcium] 600 mg PO BID 12/28/15 05/04/16 LORazepam [Ativan] 1 mg PO TID 12/28/15 05/04/16 Multivitamin [Multivitamins Adult 1 tab PO DAILY 12/28/15 05/04/16 Gummies] Wing-3 Fatty Acids/Fish Oil [Fish 1 cap PO BID 12/28/15 05/04/16 Oil 1,000 mg Softgel] PARoxetine [Paxil] 20 mg PO DAILY 12/28/15 05/04/16 Flunisolide [Aerospan] 2 puff INHALATION RT-BID 05/04/16 05/04/16 HYDROcodone/APAP 5-325MG [[place] 1 tab PO Q4HR PRN 05/04/16 05/04/16 5-325] predniSONE See Taper PO DAILY 05/04/16 05/04/16 Previous Rx's Medication Instructions Recorded Nicotine 14Mg/24Hr Patch [Habitrol] 1 patch TOPICAL DAILY #30 patch 01/05/16 Allergies Allergy/AdvReac Type Severity Reaction Status Date / Time azithromycin [From Zithromax] Allergy Rash/Hives Verified 01/11/19 08:33 cephalexin [From Keflex] Allergy Rash/Hives Verified 01/11/19 08:33 Review of Systems ROS Statement: Those systems with pertinent positive or pertinent negative responses have been documented in the HPI. ROS Other: All systems not noted in ROS Statement are negative. 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 JOHANNE LUNG MASS CURRENTLY. STATED HAD A PNE VACCINE APPROX 3 YEARS AGO NOT SURE OF DATE History of Any Multi-Drug Resistant Organisms: None Reported Past Surgical History: Tubal Ligation Additional Past Surgical History / Comment(s): TUBAL PREG. COLONOSCOPY.BX OF LT UPPER LUNG Past Anesthesia/Blood Transfusion Reactions: No Reported Reaction Past Psychological History: Anxiety, Depression, Panic Disorder Smoking Status: Current every day smoker Past Alcohol Use History: None Reported Past Drug Use History: Marijuana - Past Family History Mother Family Medical History: Myocardial Infarction ([place]) Additional Family Medical History / Comment(s): SEVERAL CA'S,TORREY ONE IN HER LASTE 40'S Father Family Medical History: COPD, Myocardial Infarction ([place]) Additional Family Medical History / Comment(s): EMPHYSEMA General Exam Limitations: no limitations General appearance: alert, in no apparent distress Head exam: Present: atraumatic, normocephalic Eye exam: Present: normal appearance, PERRL ENT exam: Present: normal exam Neck exam: Present: normal inspection. Absent: tenderness, meningismus Respiratory exam: Present: chest wall tenderness (Tenderness just to the left of the sternum, associated with the patient's location of pain complaint), decreased breath sounds. Absent: respiratory distress, wheezes, rhonchi Cardiovascular Exam: Present: regular rate, normal rhythm, normal heart sounds GI/Abdominal exam: Present: soft. Absent: distended, tenderness Extremities exam: Present: normal inspection, normal capillary refill. Absent: pedal edema, calf tenderness Neurological exam: Present: alert, oriented X3, CN II-XII intact. Absent: motor sensory deficit Psychiatric exam: Present: normal affect, normal mood Skin exam: Present: warm, dry, intact. Absent: cyanosis, diaphoretic Course Vital Signs 01/11/19 01/11/19 08:31 09:10 Temperature 97.9 F Pulse Rate 95 82 Respiratory 18 17 Rate Blood Pressure 139/94 138/96 O2 Sat by Pulse 100 100 Oximetry EKG Findings - EKG Comments: EKG Findings:: EKG: Normal sinus rhythm, nonspecific T-wave abnormality, rate of 93, AR interval 144, QRS duration 78, QTC 427, no ST segment elevation, no change compared to previous EKG. Medical Decision Making - Medical Decision Making 53-year-old female presenting with left-sided and anterior chest pain. Pain is reproducible on exam. Pain is been ongoing for several months. She's had an outpatient stress test. She has an EKG which is normal sinus rhythm rate [address] segment elevation. His normal CBC, normal electrolytes and CMP. She has a negative d-dimer, negative troponin. Chest x-ray showing emphysema and chronic scarring, no acute cardiothoracic process. Given the recent stress tests, patient is offered observation versus home with outpatient follow-up. She does have an appointment with her primary care physician in 3 days. She will return with worsening or changing symptoms. - Lab Data Result diagrams: 01/11/19 08:40 01/11/19 08:40 Lab Results 01/11/19 01/11/19 01/11/19 Range/Units 08:40 08:40 08:40 WBC 5.7 (3.8-10.6) k/uL RBC 4.26 (3.80-5.40) m/uL Hgb 14.0 (11.4-16.0) gm/dL Hct 42.1 (34.0-46.0) % MCV 98.9 (80.0-100.0) fL MCH 33.0 (25.0-35.0) pg MCHC 33.4 (31.0-37.0) g/dL RDW 12.8 (11.5-15.5) % Plt Count 254 (150-450) k/uL Neutrophils % 66 % Lymphocytes % 24 % Monocytes % 4 % Eosinophils % 4 % Basophils % 0 % Neutrophils # 3.7 (1.3-7.7) k/uL Lymphocytes # 1.4 (1.0-4.8) k/uL Monocytes # 0.2 (0-1.0) k/uL Eosinophils # 0.2 (0-0.7) k/uL Basophils # 0.0 (0-0.2) k/uL PT 10.6 (9.0-12.0) sec INR 1.0 (<1.2) APTT 26.2 (22.0-30.0) sec D-Dimer 0.39 (<0.60) mg/L FEU Sodium 141 (137-145) mmol/L Potassium 4.0 (3.5-5.1) mmol/L Chloride 107 (98-107) mmol/L Carbon Dioxide 26 (22-30) mmol/L Anion Gap 8 mmol/L BUN 9 (7-17) mg/dL Creatinine 0.92 (0.52-1.04) mg/dL Est GFR (CKD-EPI)AfAm 81 (>60 ml/min/1.73 sqM) Est GFR (CKD-EPI)NonAf 71 (>60 ml/min/1.73 sqM) Glucose 110 H (74-99) mg/dL Calcium 10.1 (8.4-10.2) mg/dL Magnesium 1.9 (1.6-2.3) mg/dL Total Bilirubin 0.5 (0.2-1.3) mg/dL AST 21 (14-36) U/L ALT 14 (9-52) U/L Alkaline Phosphatase 87 (38-126) U/L Troponin I (0.000-0.034) ng/mL Total Protein 7.0 (6.3-8.2) g/dL Albumin 4.1 (3.5-5.0) g/dL 01/11/19 Range/Units 08:40 WBC (3.8-10.6) k/uL RBC (3.80-5.40) m/uL Hgb (11.4-16.0) gm/dL Hct (34.0-46.0) % MCV (80.0-100.0) fL MCH (25.0-35.0) pg MCHC (31.0-37.0) g/dL RDW (11.5-15.5) % Plt Count (150-450) k/uL Neutrophils % % Lymphocytes % % Monocytes % % Eosinophils % % Basophils % % Neutrophils # (1.3-7.7) k/uL Lymphocytes # (1.0-4.8) k/uL Monocytes # (0-1.0) k/uL Eosinophils # (0-0.7) k/uL Basophils # (0-0.2) k/uL PT (9.0-12.0) sec INR (<1.2) APTT (22.0-30.0) sec D-Dimer (<0.60) mg/L FEU Sodium (137-145) mmol/L Potassium (3.5-5.1) mmol/L Chloride (98-107) mmol/L Carbon Dioxide (22-30) mmol/L Anion Gap mmol/L BUN (7-17) mg/dL Creatinine (0.52-1.04) mg/dL Est GFR (CKD-EPI)AfAm (>60 ml/min/1.73 sqM) Est GFR (CKD-EPI)NonAf (>60 ml/min/1.73 sqM) Glucose (74-99) mg/dL Calcium (8.4-10.2) mg/dL Magnesium (1.6-2.3) mg/dL Total Bilirubin (0.2-1.3) mg/dL AST (14-36) U/L ALT (9-52) U/L Alkaline Phosphatase (38-126) U/L Troponin I <0.012 (0.000-0.034) ng/mL Total Protein (6.3-8.2) g/dL Albumin (3.5-5.0) g/dL Disposition Clinical Impression: Atypical chest pain Disposition: HOME SELF-CARE Condition: Good Instructions (If sedation given, give patient instructions): Chest Pain (ED) Is patient prescribed a controlled substance at d/c from ED?: No Referrals: Sebastián Claros MD [Primary Care Provider] - 1-2 days Time of Disposition: 10:04
--- NOTE | 2019-01-11 09:10 | XR ---
EXAMINATION TYPE: XR chest 2V DATE OF EXAM: 01/11/2019 COMPARISON: Chest x-ray January 05, 2016 CT chest October 04, 2016.. HISTORY: History of COPD with chest pain and shortness of breath TECHNIQUE: Frontal and lateral views of the chest are obtained. FINDINGS: There is background chronic emphysematous change with left infrahilar and right suprahilar linear scarring redemonstrated. There is no new suspicious focal air space opacity, pleural effusion, or pneumothorax seen. The cardiac silhouette size remains within normal limits. The osseous struc tures are demineralized. Exaggerated thoracic kyphosis is seen. Overlying EKG leads are seen. IMPRESSION: Chronic emphysematous and parenchymal fibrotic changes without acute pulmonary process.
[2019-01-11 09:11] LABS: Basophils % (A) 0 %; Eosinophils # (A) 0.2 k/uL (0-0.7); Eosinophils % (A) 4 %; HCT 42.1 % (34.0-46.0); Lymphocytes # (A) 1.4 k/uL (1.0-4.8); Lymphocytes % (A) 24 %; MCHC 33.4 g/dL (31.0-37.0); MCV 98.9 fL (80.0-100.0); Mean Platelet Volume 6.1; Monocytes # (A) 0.2 k/uL (0-1.0); Monocytes % (A) 4 %; Neutrophils # (A) 3.7 k/uL (1.3-7.7); Neutrophils % (A) 66 %; Platelet Count 254 k/uL (150-450); RBC 4.26 m/uL (3.80-5.40); RDW 12.8 % (11.5-15.5); WBC 5.7 k/uL (3.8-10.6)
[2019-01-11 09:13] VITALS: BP 138/96
[2019-01-11 09:19] LABS: Albumin 4.1 g/dL (3.5-5.0); Calcium 10.1 mg/dL (8.4-10.2); Magnesium 1.9 mg/dL (1.6-2.3); Total Bilirubin 0.5 mg/dL (0.2-1.3)
[2019-01-11 09:27] LABS: D-Dimer 0.39 mg/L FEU (<0.60); Partial Thromboplastin Time 26.2 sec (22.0-30.0); Prothrombin Time 10.6 sec (9.0-12.0)
[2019-01-11 10:07] VITALS: PULSE 77; RESP 18; TEMP 98
== END 2019-01-11 10:13 | disposition home or self-care (01) ==
LOC: EC 08:29
DX: R07.89 Other chest pain (principal); J43.9 Emphysema, unspecified; R91.8 Other nonspecific abnormal finding of lung field; M19.90 Unspecified osteoarthritis, unspecified site; F32.9 Major depressive disorder, single episode, unspecified; F41.0 Panic disorder [episodic paroxysmal anxiety]; F17.200 Nicotine dependence, unspecified, uncomplicated; Z88.1 Allergy status to other antibiotic agents; Z79.51 Long term (current) use of inhaled steroids; Z79.52 Long term (current) use of systemic steroids; Z79.899 Other long term (current) drug therapy; Z82.49 Family history of ischemic heart disease and other diseases of the circulatory system; Z82.5 Family history of asthma and other chronic lower respiratory diseases
CPT/HCPCS: 36415; 93005; 85379; 80053; 83735; 84484; 85025; 85610; 85730; 71046; 99285; 96374; J1885

== ENCOUNTER 2019-01-11 11:24 | Observation (INO) | payer OTHER ==
[2019-01-11] MEDS ORDERED: ASPIRIN 325 MG TAB PO STA (11:34)
[2019-01-11 11:35] VITALS: RESP 18
[2019-01-11] MEDS ORDERED: ONDANSETRON 4 MG/2 ML VIAL IVP PRN (12:27)
[2019-01-11] MEDS ORDERED: MORPHINE SULFATE 4 MG/ML SYRINGE IV PRN (12:27)
[2019-01-11] MEDS ORDERED: NALOXONE 0.4 MG/ML 1 ML VIAL IV PRN (12:27)
--- NOTE | 2019-01-11 12:27 | ED ---
General Adult HPI - General Chief complaint: Chest Pain Stated complaint: CHEST PAIN Time Seen by Provider: 01/11/19 11:29 Source: patient, RN notes reviewed, old records reviewed Mode of arrival: ambulatory Limitations: no limitations - History of Present Illness Initial comments: 53-year-old female presents for reevaluation of chest pain. I had seen the patient earlier in the day for evaluation of chest pain. She has described several months of anterior left-sided chest pain which is described as a pressure. Nonradiating. No associated nausea vomiting. No known history of CAD. She had a stress test proximally 6 weeks ago which she reported as negative this was done at an outpatient center. Patient was discharged and returned with same symptoms. No change in symptoms. No abdominal pain. No fever. No cough. Mild dyspnea. - Related Data Home Medications Medication Instructions Recorded Confirmed Albuterol Inhaler [Ventolin Hfa 2 puff INHALATION RT-Q6H PRN 12/28/15 01/11/19 Inhaler] Calcium Carbonate [Calcium] 600 mg PO BID 12/28/15 01/11/19 LORazepam [Ativan] 1 mg PO TID 12/28/15 01/11/19 HYDROcodone/APAP 5-325MG [Shiner 1 tab PO BID PRN 05/04/16 01/11/19 5-325] Beclomethasone Dip 80 Mcg/Puff 2 puff INHALATION RT-BID 01/11/19 01/11/19 [Qvar 80 mcg] Naproxen 500 mg PO BID 01/11/19 01/11/19 Allergies Allergy/AdvReac Type Severity Reaction Status Date / Time azithromycin [From Zithromax] Allergy Rash/Hives Verified 01/11/19 12:32 cephalexin [From Keflex] Allergy Rash/Hives Verified 01/11/19 12:32 Review of Systems ROS Statement: Those systems with pertinent positive or pertinent negative responses have been documented in the HPI. ROS Other: All systems not noted in ROS Statement are negative. 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 JOHANNE LUNG MASS CURRENTLY. STATED HAD A PNE VACCINE APPROX 3 YEARS AGO NOT SURE OF DATE History of Any Multi-Drug Resistant Organisms: None Reported Past Surgical History: Tubal Ligation Additional Past Surgical History / Comment(s): TUBAL PREG. COLONOSCOPY.BX OF LT UPPER LUNG Past Anesthesia/Blood Transfusion Reactions: No Reported Reaction Past Psychological History: Anxiety, Depression, Panic Disorder Smoking Status: Current every day smoker Past Alcohol Use History: None Reported Past Drug Use History: Marijuana - Past Family History Mother Family Medical History: Myocardial Infarction ([place]) Additional Family Medical History / Comment(s): SEVERAL IN'S,TORREY ONE IN HER LASTE 40'S Father Family Medical History: COPD, Myocardial Infarction ([place]) Additional Family Medical History / Comment(s): EMPHYSEMA General Exam Limitations: no limitations General appearance: alert, in no apparent distress Head exam: Present: atraumatic, normocephalic Eye exam: Present: normal appearance, PERRL ENT exam: Present: normal exam Neck exam: Present: normal inspection. Absent: tenderness, meningismus Respiratory exam: Present: decreased breath sounds (Diminished breath sounds bilaterally). Absent: respiratory distress, wheezes Cardiovascular Exam: Present: regular rate, normal rhythm GI/Abdominal exam: Present: soft. Absent: distended, tenderness, guarding, rebound Extremities exam: Present: normal inspection, normal capillary refill. Absent: pedal edema, calf tenderness Neurological exam: Present: alert, oriented X3, CN II-XII intact. Absent: motor sensory deficit Psychiatric exam: Present: normal affect, normal mood Skin exam: Present: warm, dry, intact. Absent: cyanosis, diaphoretic Course Vital Signs 01/11/19 11:26 Temperature 97.8 F Pulse Rate 99 Respiratory 18 Rate Blood Pressure 125/81 O2 Sat by Pulse 98 Oximetry EKG Findings - EKG Comments: EKG Findings:: EKG: Normal sinus rhythm, T-wave abnormality in V2 and aVL nonspecific, rate of 88, MD interval 144, QRS duration 80, QTC 421, similar compared to EKG obtained earlier today. Medical Decision Making - Medical Decision Making Patient returning for evaluation chest pain. Did see this patient earlier today with atypical chest pain. She had normal CBC, normal CMP, negative troponin, negative d-dimer. Chest x-ray showing some parenchymal scarring and emphysema, no acute process. EKG is repeated upon repeat visit which is sinus rhythm with no ST segment elevation. A second troponin is obtained in the emergency department and the patient will be placed in observation for cardiac monitoring, serial troponin, and cardiology consultation. Case is discussed with the admitting physician Dr. Fierro. Troponin repeated, second troponin negative. - Lab Data Lab Results 01/11/19 Range/Units 12:00 Troponin I <0.012 (0.000-0.034) ng/mL Disposition Clinical Impression: Chest pain Disposition: ADMITTED IP TO THIS HOSP Condition: Stable Is patient prescribed a controlled substance at d/c from ED?: No Referrals: Sebastián Claros MD [Primary Care Provider] - 1-2 days Decision to Admit Reason: Admit from EC Decision Date: 01/11/19 Decision Time: 12:27
[2019-01-11 15:01] LABS: Cholesterol 188 mg/dL (<200); HDL Cholesterol 50 mg/dL (40-60); LDL Cholesterol,Calculated 117 mg/dL (0-99); Triglycerides 105 mg/dL (<150)
[2019-01-11] MEDS: HYDROcodone/APAP 5-325MG 1 EACH TAB PO PRN ×2 (15:23→21:28)
[2019-01-11] MEDS ORDERED: TEMAZEPAM 15 MG CAP PO PRN (16:04)
[2019-01-11] MEDS: ALBUTEROL NEBULIZED 2.5 MG/3 ML INHALATION PRN (16:13)
--- NOTE | 2019-01-11 16:59 | HP ---
HISTORY AND PHYSICAL I am covering for Dr. Claros. DATE OF SERVICE: 01/11/2019 CHIEF COMPLAINT: Chest pain. HISTORY OF PRESENT ILLNESS: This 53-year-old woman with a past medical history of multiple medical problems, including COPD, history of DJD, history of floaters, anxiety, depression, panic disorder, being followed by Dr. Claros in the outpatient setting, was complaining of chest pains. The patient had several months of anterior left-sided chest pain which was also described as a pressure, and the patient came to [facility] and was admitted for further evaluation and treatment. The patient apparently was initially discharged, but because of persistence of pain, patient was admitted. The EKG showed nonspecific ST-T changes. Initial troponins are negative. There is no history of any fever, rigor or chills. No history of headache, loss of consciousness, seizures. PAST MEDICAL HISTORY: 1. History of COPD. 2. History of eye disorder. 3. DJD. 4. History of floaters. 5. Anxiety. 6. Depression. 7. Panic disorder. MEDICATIONS: 1. Ativan 1 mg p.o. t.i.d. 2. Qvar 2 puffs b.i.d. 3. Ventolin HFA 2 puffs q.6 p.r.n. 4. Naprosyn 500 mg p.o. b.i.d. 5. [place] 5 mg b.i.d. p.r.n. 6. Calcium 600 mg p.o. b.i.d. ALLERGIES: ZITHROMAX and KEFLEX. FAMILY HISTORY: History of myocardial infarction in the family. SOCIAL HISTORY: History of THC, history of smoking. The patient also reports significant neuromyelitis optica in one of the sons and recent passing away of her daughter because of multiple sclerosis and possible accidental overdose. REVIEW OF SYSTEMS: ENT: No diminished hearing. No diminished vision. CARDIOVASCULAR SYSTEM: As mentioned earlier. RESPIRATORY SYSTEM: As mentioned earlier. GI: No nausea, vomiting. : No dysuria or retention. NERVOUS SYSTEM: No numbness, weakness. ALLERGY/IMMUNOLOGY: No asthma, hayfever. MUSCULOSKELETAL: As mentioned earlier. HEMATOLOGY/ONCOLOGY: No history of anemia. ENDOCRINE: No history of diabetes, hypothyroidism. CONSTITUTIONAL: As mentioned earlier. DERMATOLOGY: Negative. RHEUMATOLOGY: As mentioned earlier. PSYCHIATRY: As mentioned earlier. PHYSICAL EXAMINATION: Patient alert and oriented x3. Pulse 88, blood pressure 150/93, respiration 18, temperature 97.9, pulse ox 99% on room air. HEENT: Conjunctivae normal. Oral mucosa moist. NECK: No jugular venous distention. No carotid bruit. No lymph node enlargement. CARDIOVASCULAR SYSTEM: S1, S2 muffled. RESPIRATORY SYSTEM: Breath sounds diminished at the bases. No rhonchi. No crackles. ABDOMEN: Soft, non-tender. No mass palpable. LEGS: No edema. No swelling. NERVOUS SYSTEM: Higher functions as mentioned earlier. Moves all 4 limbs. No focal motor or sensory deficit. LYMPHATICS: No lymph node palpable in neck, axillae or groin. JOINTS: No active deforming arthropathy. LABS/IMAGING: Reviewed. The previous extensive rheumatology evaluation is negative. EKG noted personally. ASSESSMENT: 1. Chest pain; possible unstable angina. 2. Multiple social stressors. 3. Degenerative joint disease. 4. Anxiety, depression, panic disorder. 5. History of nicotine dependence, continued ongoing. 6. History of tetrahydrocannabinol. RECOMMENDATIONS AND DISCUSSION: In this 53-year-old woman who presented with multiple medical issues, at this time I recommend to continue the current medications, continue symptomatic treatment. Unstable angina protocol. Closely follow with Cardiology. See orders for details. Medication reconciliation was done. Prognosis guarded. Discussed with the patient, who understands. Further recommendations to follow. A copy of this dictation is being forwarded to Dr. Claros, who will follow the patient as an outpatient. MMODL / IJN: [id number] /
[2019-01-11] MEDS: LORazepam 1 MG TAB PO SCH ×2 (17:17→21:28)
[2019-01-11] MEDS: PANTOPRAZOLE 40 MG TABLET PO SCH (17:17)
[2019-01-11 18:39] LABS: Albumin 3.6 g/dL (3.5-5.0); Calcium 9.3 mg/dL (8.4-10.2); Potassium 3.5 mmol/L (3.5-5.1); Total Bilirubin 0.5 mg/dL (0.2-1.3); Total Protein 6.3 g/dL (6.3-8.2)
[2019-01-11] MEDS: CALCIUM CARBONATE 500 MG CHEWABLE PO SCH (20:26)
[2019-01-11] MEDS: NAPROXEN 250 MG TAB PO SCH (20:27)
[2019-01-11] MEDS: FLUTICASONE 110 MCG INHALER INHALATION SCH (20:58)
[2019-01-12] MEDS: HYDROcodone/APAP 5-325MG 1 EACH TAB PO PRN ×3 (05:40→21:18)
[2019-01-12] MEDS: LORazepam 1 MG TAB PO SCH ×3 (05:42→21:16)
[2019-01-12 06:18] LABS: Calcium 9.7 mg/dL (8.4-10.2); Potassium 4.4 mmol/L (3.5-5.1)
[2019-01-12] MEDS: FLUTICASONE 110 MCG INHALER INHALATION SCH ×2 (07:30→19:53)
--- NOTE | 2019-01-12 09:51 | P.CRDCN ---
History of Present Illness Consult date: 01/12/19 Chief complaint: Chest pain History of present illness: This is a very pleasant 53-year-old female patient with a past medical history significant for smoking as well as possible history of depression presented to the emergency room complaining of chest discomfort. The patient has been under a lot of stress lately with her daughter who committed suicide and also with her son who is sick as well. The patient does follow was Dr. Arenas in the office on regular basis. She stated that she has been experiencing intermittent episodes of chest discomfort for the last several months. The discomfort is mainly in the mid of the chest, as a pressure on the chest, without any radiations to the arms or neck or shoulders or back, and without any associated symptoms of shortness of breath, dizziness, heart racing, or syncope. The patient stated that the discomfort sometimes is exertional more than resting. She stated that she underwent a stress test recently in our office where she walk on the treadmill but unfortunately we don't have a copy of the stresses at this point. She stated that she did not see Dr. Arenas after the stress test. This time, the EKG showed sinus rhythm without any ST or T-wave abnormalities. The cardiac enzymes were checked and came in to be unremarkable. The chest x-ray did not show any acute abnormalities. I did advise the patient to stay overnight for 1 more day of monitoring and we will obtain a copy of the stress test from the office tomorrow. If the stress test is normal she possibly can be discharged home. If the patient did not have any stress test then she needs to undergo a stress test to rule out severe underlying coronary artery disease. We'll continue following up with her. 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 JOHANNE LUNG MASS CURRENTLY. STATED HAD A PNE VACCINE APPROX 3 YEARS AGO NOT SURE OF DATE History of Any Multi-Drug Resistant Organisms: None Reported Past Surgical History: Tubal Ligation Additional Past Surgical History / Comment(s): TUBAL PREG. COLONOSCOPY.BX OF LT UPPER LUNG Past Anesthesia/Blood Transfusion Reactions: No Reported Reaction Past Psychological History: Anxiety, Depression, Panic Disorder Additional Psychological History / Comment(s): PT LIVES WITH HER SON, IS INDEPENDANT, NO MEDICAL EQUIPMENT, NO OUTSIDE SERVICES. HAS 2 STEPS INTO HOME LIVES ON ONE LEVEL. Smoking Status: Current every day smoker Past Alcohol Use History: None Reported Additional Past Alcohol Use History / Comment(s): SMOKED 35 PLUS YEARS, 1 PPD AVG, TRYING TO QUIT. Past Drug Use History: Marijuana Additional Drug Use History / Comment(s): OCC MARIJUANA - Past Family History Mother Family Medical History: Myocardial Infarction ([place]) Additional Family Medical History / Comment(s): SEVERAL OK'S,TORREY ONE IN HER LASTE 40'S Father Family Medical History: COPD, Myocardial Infarction ([place]) Additional Family Medical History / Comment(s): EMPHYSEMA Medications and Allergies Home Medications Medication Instructions Recorded Confirmed Type Albuterol Inhaler [Ventolin Hfa 2 puff INHALATION RT-Q6H PRN 12/28/15 01/11/19 History Inhaler] Calcium Carbonate [Calcium] 600 mg PO BID 12/28/15 01/11/19 History LORazepam [Ativan] 1 mg PO TID 12/28/15 01/11/19 History HYDROcodone/APAP 5-325MG [[place] 1 tab PO BID PRN 05/04/16 01/11/19 History 5-325] Beclomethasone Dip 80 Mcg/Puff 2 puff INHALATION RT-BID 01/11/19 01/11/19 History [Qvar 80 mcg] Naproxen 500 mg PO BID 01/11/19 01/11/19 History Allergies Allergy/AdvReac Type Severity Reaction Status Date / Time azithromycin [From Zithromax] Allergy Rash/Hives Verified 01/11/19 12:32 cephalexin [From Keflex] Allergy Rash/Hives Verified 01/11/19 12:32 Physical Exam Vitals: Vital Signs Temp Pulse Pulse Resp BP BP BP 01/12/19 07:26 98.4 F 80 18 114/75 01/12/19 04:16 98.3 F 80 18 144/85 01/11/19 23:59 97.8 F 74 18 112/67 01/11/19 19:44 97.9 F 87 18 101/63 01/11/19 16:46 80 01/11/19 16:34 80 01/11/19 16:00 97.9 F 80 111/69 01/11/19 13:05 97.9 F 88 18 150/93 01/11/19 12:45 97.9 F 79 18 149/89 01/11/19 11:26 97.8 F 99 18 125/81 Pulse Ox 01/12/19 07:26 96 01/12/19 04:16 93 L 01/11/19 23:59 96 01/11/19 19:44 95 01/11/19 16:46 01/11/19 16:34 01/11/19 16:00 95 01/11/19 13:05 99 01/11/19 12:45 98 01/11/19 11:26 98 Intake and Output 01/11/19 01/12/19 01/12/19 22:59 06:59 14:59 Other: Voiding Method Toilet Toilet Toilet # Voids 1 1 - Constitutional General appearance: no acute distress - Respiratory Respiratory: bilateral: CTA - Cardiovascular Rhythm: regular Heart sounds: normal: S1, S2 Results 01/12/19 05:43 Cardiac Enzymes 01/11/19 01/11/19 01/11/19 Range/Units 12:00 18:13 18:13 AST 18 (14-36) U/L Troponin I <0.012 <0.012 (0.000-0.034) ng/mL Lipids 01/11/19 Range/Units 08:40 Triglycerides 105 (<150) mg/dL Cholesterol 188 (<200) mg/dL HDL Cholesterol 50 (40-60) mg/dL Comprehensive Metabolic Panel 01/11/19 01/12/19 Range/Units 18:13 05:43 Sodium 138 142 (137-145) mmol/L Potassium 3.5 4.4 (3.5-5.1) mmol/L Chloride 107 108 H (98-107) mmol/L Carbon Dioxide 25 27 (22-30) mmol/L BUN 11 12 (7-17) mg/dL Creatinine 0.86 1.01 (0.52-1.04) mg/dL Glucose 115 H 92 (74-99) mg/dL Calcium 9.3 9.7 (8.4-10.2) mg/dL AST 18 (14-36) U/L ALT 15 (9-52) U/L Alkaline Phosphatase 70 (38-126) U/L Total Protein 6.3 (6.3-8.2) g/dL Albumin 3.6 (3.5-5.0) g/dL Current Medications Generic Name Dose Route Start Last Admin Trade Name Freq PRN Reason Stop Dose Admin Acetaminophen 650 mg 01/11/19 12:27 Tylenol Tab PO Q6HR PRN Mild Pain or Fever > 100.5 Hydrocodone Bitart/Acetaminophen 1 each 01/11/19 15:15 01/12/19 05:40 [place] 5-325 PO 1 each BID PRN Administration Pain Albuterol Sulfate 2.5 mg 01/11/19 15:15 01/11/19 16:13 Ventolin Nebulized INHALATION 2.5 mg RT-Q6H PRN Administration Shortness Of Breath Aspirin 325 mg 01/12/19 09:00 Aspirin PO DAILY JACKIE Calcium Carbonate/Glycine 500 mg 01/11/19 21:00 01/11/19 20:26 Tums PO 500 mg BID JACKIE Administration Fluticasone Propionate 2 puff 01/11/19 20:00 01/12/19 07:30 Flovent 110 Mcg Inhaler INHALATION 2 puff RT-BID JACKIE Administration Lorazepam 1 mg 01/11/19 16:00 01/12/19 05:42 Ativan PO 1 mg TID JACKIE Administration Morphine Sulfate 4 mg 01/11/19 12:27 01/11/19 16:32 Morphine Sulfate (Inj) IV 4 mg Q4HR PRN Administration Severe Pain Naloxone HCl 0.2 mg 01/11/19 12:27 Narcan IV Q2M PRN Opioid Reversal Naproxen 500 mg 01/11/19 21:00 01/11/19 20:27 Naprosyn PO 500 mg BID JACKIE Administration Ondansetron HCl 4 mg 01/11/19 12:27 Zofran IVP Q8HR PRN Nausea And Vomiting Pantoprazole Sodium 40 mg 01/11/19 16:15 01/11/19 17:17 Protonix PO 40 mg AC-[id number] JACKIE Administration Temazepam 15 mg 01/11/19 16:04 Restoril PO HS PRN Insomnia Intake and Output 01/11/19 01/12/19 01/12/19 22:59 06:59 14:59 Other: Voiding Method Toilet Toilet Toilet # Voids 1 1 01/12/19 05:43 Assessment and Plan Assessment: Assessment #1 chest pain concerning for coronary artery disease #2 history of smoking #3 significant family history of CAD Plan #1 acute coronary event was ruled out #2 rule out severe CAD #3 further recommendation to follow after we get the records from the office including the stress test
[2019-01-12] MEDS: ASPIRIN 325 MG TAB PO SCH (09:52)
[2019-01-12] MEDS: PANTOPRAZOLE 40 MG TABLET PO SCH (09:52)
[2019-01-12] MEDS: NAPROXEN 250 MG TAB PO SCH ×2 (09:52→21:16)
[2019-01-12] MEDS: CALCIUM CARBONATE 500 MG CHEWABLE PO SCH ×2 (09:53→21:16)
[2019-01-12] MEDS: ACETAMINOPHEN TAB 325 MG TAB PO PRN ×2 (11:45→20:08)
[2019-01-12] MEDS: NICOTINE 21MG/24HR PATCH TRANSDERM SCH (13:36)
[2019-01-12 15:29] VITALS: BMI 18.2
--- NOTE | 2019-01-12 16:45 | PN ---
PROGRESS NOTE DATE OF SERVICE: January 12, 2019 I am covering for Dr. Claros. This 53-year-old woman who was admitted with chest pain is being closely monitored. Cardiology following the patient closely. No fever. No cough. EXAM: Alert and oriented times three. Pulse is 80. Blood pressure is 108/71. Respirations 18. Temperature 98.4, pulse ox 97% on room air. HEENT: Conjunctivae normal. Oral mucosa moist. NECK: No JVD. CARDIOVASCULAR: S1, S2 muffled. RESPIRATORY SYSTEM: Breath sounds diminished at the bases. A few scattered rhonchi. No crackles. ABDOMEN is soft, nontender. LEGS: No edema. No swelling. NERVOUS SYSTEM: No focal deficits. LABS: CBC, BMP noted. ASSESSMENT: 1. Chest pain, possible unstable angina. 2. Multiple social stressors. 3. Degenerative joint disease. 4. Anxiety/depression. 5. Panic disorder. 6. History of nicotine dependence, continued ongoing. 7. History of THC. RECOMMENDATIONS AND DISCUSSION: Recommend to continue current medications, management and symptomatic treatment. Myocardial infarction has been ruled out. Closely follow with Cardiology. Possible stress test. N.p.o. after midnight. Dr. Claros will follow. Further recommendations to follow. MMODL / IJN: [id number] /
[2019-01-12] MEDS: ALBUTEROL NEBULIZED 2.5 MG/3 ML INHALATION PRN (19:59)
[2019-01-13] MEDS: HYDROcodone/APAP 5-325MG 1 EACH TAB PO PRN ×2 (04:30→10:23)
[2019-01-13 05:54] LABS: Calcium 9.8 mg/dL (8.4-10.2); Potassium 4.2 mmol/L (3.5-5.1)
[2019-01-13] MEDS: LORazepam 1 MG TAB PO SCH ×2 (05:54→14:11)
[2019-01-13] MEDS: FLUTICASONE 110 MCG INHALER INHALATION SCH (08:34)
[2019-01-13] MEDS: CALCIUM CARBONATE 500 MG CHEWABLE PO SCH (09:01)
[2019-01-13] MEDS: NICOTINE 21MG/24HR PATCH TRANSDERM SCH (09:01)
[2019-01-13] MEDS: NAPROXEN 250 MG TAB PO SCH (09:01)
[2019-01-13] MEDS: ASPIRIN 325 MG TAB PO SCH (09:02)
[2019-01-13] MEDS: PANTOPRAZOLE 40 MG TABLET PO SCH (09:02)
--- NOTE | 2019-01-13 11:40 | P.PN ---
Subjective This is a pleasant 53-year-old female past medical history significant for COPD and chronic nicotine dependence. She follows in the office with Dr. Arenas. She is seen and examined sitting up in bed in no acute distress. She continues to complain of intermittent discomfort in the chest which she takes in a deep breath. She has been up and walking with no exertional chest discomfort. She recently underwent a stress echocardiogram in the office 11/13/2018 that was negative for stress-induced ischemia. She also had an echocardiogram at that time that was normal with no evidence of wall motion abnormality and preserved LV function. Blood pressure 123/83 heart rate 76 afebrile maintaining oxygen saturation on room air. Laboratory data reviewed, sodium, potassium 4.2, creatinine 0.95. GENERAL: Well-appearing, well-nourished and in no acute distress. NECK: Supple without JVD or thyromegaly. LUNGS: Breath sounds clear to auscultation bilaterally. Respiration equal and unlabored. No wheezes, rales or rhonchi. HEART: Regular rate and rhythm without murmurs, rubs or gallops. S1 and S2 heard. EXTREMITIES: Normal range of motion, no edema. No clubbing or cyanosis. Peripheral pulses intact. ASSESSMENT Pleuritic chest pain, atypical for angina. An acute coronary event has been ruled out. Recent stress test in the office negative for stress-induced ischemia. Dyslipidemia, LDL 117 Chronic nicotine dependence PLAN An acute event has been ruled out. Recent stress test in the office negative for stress induced ischemia. Pain is atypical for angina with respirophasic features. No exertional chest pain. Smoking cessation and lifestyle modifications recommended for lowering of LDL cholesterol. Stable for discharge from a cardiac perspective. Follow up with Dr. Arenas in 2-3 weeks. Nurse Practitioner note has been reviewed, I agree with a documented findings and plan of care. Patient was seen and examined. Objective - Vital Signs Vital signs: Vital Signs Temp 98.1 F 01/13/19 07:53 Pulse 76 01/13/19 08:00 Resp 18 01/13/19 08:00 BP 123/83 01/13/19 07:53 Pulse Ox 98 01/13/19 07:53 Intake & Output 01/12/19 01/13/19 01/13/19 18:59 06:59 18:59 Weight 54.431 kg Other: Voiding Method Toilet Toilet Toilet # Voids 1 2 - Labs CBC & Chem 7: 01/13/19 05:10 Labs: Abnormal Lab Results - Last 24 Hours (Table) 01/13/19 Range/Units 05:10 BUN 19 H (7-17) mg/dL
[2019-01-13 11:56] VITALS: BP 119/79; PULSE 79; TEMP 98.2
--- NOTE | 2019-01-13 23:16 | DS ---
DISCHARGE SUMMARY CHIEF COMPLAINT: Chest pain. HISTORY OF PRESENT ILLNESS AND PHYSICAL EXAMINATION: Details of this lady's history and physical can be found in the initial workup. LABORATORY STUDIES: While she was in the hospital she had laboratory studies, details of which can be found in the laboratory section of her chart. COURSE IN THE HOSPITAL: After admission she was placed on bedrest, started on intravenous fluids and had serial EKGs and enzymes. She was seen by Cardiology. It was not felt that her pain was cardiac and more likely in the chest wall. She was doing well and it was felt that she could be discharged on January 13. She will go home on her usual activity, diet and medication and follow up with us in several days. FINAL DIAGNOSES: 1. Atypical chest pain. 2. Chest wall pain or costochondritis. 3. Chronic obstructive pulmonary disease. 4. Depression. OPERATIONS: None. CONSULTATION: Cardiology. She is improved. MMODL / AMBROCION: [id number] /
== END 2019-01-13 16:21 | disposition home or self-care (01) ==
LOC: EC 11:24 → 1SOBS 12:27
PROVIDERS: ADMIT Family Medicine; ATTEND Family Medicine
DX: R07.89 Other chest pain (principal); J44.9 Chronic obstructive pulmonary disease, unspecified; M19.90 Unspecified osteoarthritis, unspecified site; H43.393 Other vitreous opacities, bilateral; R91.8 Other nonspecific abnormal finding of lung field; Z98.51 Tubal ligation status; F41.9 Anxiety disorder, unspecified; F32.9 Major depressive disorder, single episode, unspecified; F41.0 Panic disorder [episodic paroxysmal anxiety]; F17.200 Nicotine dependence, unspecified, uncomplicated; Z82.49 Family history of ischemic heart disease and other diseases of the circulatory system; Z82.5 Family history of asthma and other chronic lower respiratory diseases; Z79.891 Long term (current) use of opiate analgesic; Z83.518 Family history of other specified eye disorder; Z82.69 Family history of other diseases of the musculoskeletal system and connective tissue; Z79.1 Long term (current) use of non-steroidal anti-inflammatories (NSAID); Z79.51 Long term (current) use of inhaled steroids; Z79.899 Other long term (current) drug therapy; Z88.1 Allergy status to other antibiotic agents
CPT/HCPCS: 93005 ×2; 96374; 99285; 36415; 94640 ×4; 80061; 80053; 80048 ×2; 84484; G0378 ×3; S4990 ×2; J2270

== ENCOUNTER 2019-01-26 14:41 | Observation (INO) | payer OTHER ==
[2019-01-26] MEDS ORDERED: ASPIRIN 81 MG PO STA (15:08)
[2019-01-26] MEDS ORDERED: NITROGLYCERIN OINT 1 INCH/GM PACKET TOPICAL STA (15:08)
[2019-01-26] MEDS ORDERED: IPRATROPIUM-ALBUTEROL 3 ML NEB INHALATION STA (15:09)
[2019-01-26] MEDS ORDERED: LORazepam 2 MG/ML INJ IV STA (15:10)
[2019-01-26 15:47] LABS: Basophils % (A) 0 %; Eosinophils # (A) 0.2 k/uL (0-0.7); Eosinophils % (A) 2 %; HCT 36.3 % (34.0-46.0); HGB 12.3 gm/dL (11.4-16.0); Lymphocytes # (A) 1.2 k/uL (1.0-4.8); Lymphocytes % (A) 15 %; MCH 33.2 pg (25.0-35.0); MCV 97.7 fL (80.0-100.0); Mean Platelet Volume 8.1; Monocytes # (A) 0.3 k/uL (0-1.0); Monocytes % (A) 4 %; Neutrophils # (A) 6.1 k/uL (1.3-7.7); Neutrophils % (A) 77 %; Platelet Count 233 k/uL (150-450); RBC 3.72 m/uL (3.80-5.40); RDW 12.6 % (11.5-15.5); WBC 7.9 k/uL (3.8-10.6)
[2019-01-26 16:01] LABS: Calcium 9.8 mg/dL (8.4-10.2); Magnesium 1.7 mg/dL (1.6-2.3); Partial Thromboplastin Time 26.3 sec (22.0-30.0); Potassium 3.6 mmol/L (3.5-5.1); Prothrombin Time 10.6 sec (9.0-12.0); Total Bilirubin 0.5 mg/dL (0.2-1.3); Total Protein 6.9 g/dL (6.3-8.2)
[2019-01-26 16:11] LABS: D-Dimer 1.16 mg/L FEU (<0.60)
--- NOTE | 2019-01-26 16:30 | XR ---
EXAMINATION TYPE: XR chest 2V DATE OF EXAM: 01/26/2019 COMPARISON: 01/11/2019 HISTORY: Chest pain TECHNIQUE: 2 views FINDINGS: There is pulmonary hyperinflation with some flattening of the diaphragm. There are emphysem atous changes in both lungs. There is pleural and pulmonary scarring in the left midlung. Heart size is normal. There is no pleural effusion. There are chest leads. There is no heart failure. IMPRESSION: COPD. No active cardiopulmonary disease. No change. Mild thoracolumbar kyphotic deformity with old T10 and T9 mild compression fractures.
--- NOTE | 2019-01-26 17:07 | ED ---
Chest Pain HPI - General Chief Complaint: Chest Pain Stated Complaint: Chest pain Time Seen by Provider: 01/26/19 14:54 Source: patient Mode of arrival: ambulatory Limitations: no limitations - History of Present Illness Initial Comments: This 53-year-old white female presents with a complaint of some midsternal chest pain. She describes as a pressure tightness type of sensation. She also has some shortness of breath but does also have a history of COPD. She states that this occurred earlier this morning and has been persistent. She does feel an xious at times as well. She states that she ran out of her benzodiazepine medication yesterday she denies any leg pain or swelling or history of DVT or PE. She states that she did have a stress test approximately 3 months ago which apparently was negative. She was admitted to the hospital overnight 2 weeks ago and had serial troponins which was negative but no additional stress testing or heart catheterization. She denies any other complaints or modifying factors. - Related Data Home Medications Medication Instructions Recorded Confirmed Albuterol Inhaler [Ventolin Hfa 2 puff INHALATION RT-Q6H PRN 12/28/15 01/11/19 Inhaler] Calcium Carbonate [Calcium] 600 mg PO BID 12/28/15 01/11/19 LORazepam [Ativan] 1 mg PO TID 12/28/15 01/11/19 HYDROcodone/APAP 5-325MG [[place] 1 tab PO BID PRN 05/04/16 01/11/19 5-325] Beclomethasone Dip 80 Mcg/Puff 2 puff INHALATION RT-BID 01/11/19 01/11/19 [Qvar 80 mcg] Naproxen 500 mg PO BID 01/11/19 01/11/19 Allergies Allergy/AdvReac Type Severity Reaction Status Date / Time azithromycin [From Zithromax] Allergy Rash/Hives Verified 01/11/19 12:32 cephalexin [From Keflex] Allergy Rash/Hives Verified 01/11/19 12:32 Review of Systems ROS Statement: Those systems with pertinent positive or pertinent negative responses have been documented in the HPI. ROS Other: All systems not noted in ROS Statement are negative. 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 JOHANNE LUNG MASS CURRENTLY. STATED HAD A PNE VACCINE APPROX 3 YEARS AGO NOT SURE OF DATE History of Any Multi-Drug Resistant Organisms: None Reported Past Surgical History: Tubal Ligation Additional Past Surgical History / Comment(s): TUBAL PREG. COLONOSCOPY.BX OF LT UPPER LUNG Past Anesthesia/Blood Transfusion Reactions: No Reported Reaction Past Psychological History: Anxiety, Depression, Panic Disorder Smoking Status: Current every day smoker Past Alcohol Use History: None Reported Past Drug Use History: Marijuana - Past Family History Mother Family Medical History: Myocardial Infarction ([place]) Additional Family Medical History / Comment(s): SEVERAL DE'S,TORREY ONE IN HER LASTE 40'S Father Family Medical History: COPD, Myocardial Infarction ([place]) Additional Family Medical History / Comment(s): EMPHYSEMA General Exam - General Exam Comments Initial Comments: GENERAL: The patient is well nourished and well hydrated. VITAL SIGNS: Heart rate, blood pressure, respiratory rate reviewed as recorded in nurse's notes. EYES: Pupils are round and reactive. Extraocular movements are intact. No conjunctival / lid redness or swelling. ENT: No external evidence of injury, swelling, or ecchymosis. Airway is patent. Throat is clear. NECK: Nontender. No swelling or evidence of injury. No subcutaneous emphysema. Trachea is midline. No thyroid mass. HEART: tachycardic rhythm. Good peripheral pulses. LUNGS/CHEST: Breath sounds clear and equal bilaterally. No rales, rhonchi, or wheezes. No ecchymosis, subcutaneous emphysema, or tenderness. ABDOMEN: Abdomen soft without tenderness. No palpable masses or organomegaly. No peritoneal signs. No abdominal wall swelling or ecchymosis. EXTREMITIES: No extremity tenderness. Normal muscle tone and function. No thoracolumbar tenderness. NEUROLOGIC: Sensation is grossly intact. Cranial nerve exam reveals face is symmetrical, tongue is midline, speech is clear. SKIN: No abrasions or ecchymosis is noted. No induration or masses noted. PSYCHIATRIC: Alert and oriented. appears moderately anxious. Limitations: no limitations Course Vital Signs 01/26/19 01/26/19 01/26/19 14:45 15:00 15:28 Temperature 97.8 F Pulse Rate 126 H 112 H 105 H Respiratory 20 17 Rate Blood Pressure 106/76 121/82 O2 Sat by Pulse 97 94 L Oximetry 01/26/19 01/26/19 01/26/19 15:36 16:00 17:00 Temperature Pulse Rate 103 H 105 H 98 Respiratory 16 18 Rate Blood Pressure 118/89 115/78 O2 Sat by Pulse 96 96 Oximetry Chest Pain MDM - MDM the patient was seen and examined. All diagnostics were reviewed. The EKG shows a sinus tachycardia at a rate of 114. There is no acute ST-T wave changes identified. The ME intervals 186, QRS duration is 72, and the QTC intervals 457. The patient does receive aspirin as well as Nitropaste and 1 mg of Ativan intravenously. She is sleeping on recheck. Her laboratory analysis are all essentially within normal limits except for her d-dimer is elevated. The chest x-ray does not show any acute processes. A CTA of the chest is ordered due to the elevated d-dimer as well as her symptomatology.The CTA is negative for any evidence of pulmonary embolism. It does show signs of emphysema. The patient is sleeping on recheck and in and in no distress. The patient has had a recent workup 3 months ago which does include a stress test. It is felt as though she may benefit from admission once again and cardiology evaluation. The possibility for need of a heart catheterization is possible. The case will be discussed with internal medicine shortly. Disposition Clinical Impression: Chest pain, Dyspnea, Unstable angina, Sinus tachycardia, Anxiety, COPD (chronic obstructive pulmonary disease) Disposition: ADMITTED IP TO THIS HOSP Condition: Fair Is patient prescribed a controlled substance at d/c from ED?: No Time of Disposition: 18:36 Decision Date: 01/26/19 Decision Time: 18:36
--- NOTE | 2019-01-26 17:56 | CT ---
EXAMINATION TYPE: CT angio chest DATE OF EXAM: 01/26/2019 COMPARISON: 09/14/2016 HISTORY: Chest pain, elevated d-dimer. CT DLP: 220.5 mGycm Automated exposure control for dose reduction was used. CONTRAST: Performed with IV Contrast, patient injected with 100 mL of Isovue 370. There are 3-D post processed images. FINDINGS: There is diffuse pulmonary emphysema. There is bullous disease throughout the lungs. There is no medi astinal adenopathy. There are no hilar masses. Heart size is normal. There is no pericardial effusion . There is minimal scarring and subsegmental atelectasis at the lung bases. There is no pleural effus ion. There is normal contrast opacification of the pulmonary arteries. There are no filling defects. Thora cic aorta shows no aneurysm or dissection. Ascending aorta measures 3.4 cm. There is thoracolumbar ky photic deformity with anterior wedging of lower thoracic vertebra up to 30%. IMPRESSION: Bullous emphysema. No evidence of pulmonary embolism. Thoracolumbar kyphotic deformity with lower thoracic compression fractures. There is new compression fracture of T11 and T10 compared to old exam. T9 fracture unchanged.
[2019-01-26] MEDS ORDERED: NITROGLYCERIN SL TABS 0.4 MG TAB SUBLINGUAL PRN (19:17)
[2019-01-26 19:27] VITALS: RESP 18
[2019-01-27] MEDS: FLUTICASONE 110 MCG INHALER INHALATION SCH ×3 (01:21→19:47)
[2019-01-27] MEDS: HYDROcodone/APAP 5-325MG 1 EACH TAB PO PRN ×3 (02:06→21:59)
[2019-01-27] MEDS: NITROGLYCERIN OINT 1 INCH/GM PACKET TOPICAL SCH ×5 (02:06→23:11)
[2019-01-27] MEDS: LORazepam 1 MG TAB PO PRN ×3 (02:09→17:16)
[2019-01-27] MEDS: CALCIUM CARBONATE 500 MG CHEWABLE PO SCH ×2 (03:09→12:08)
[2019-01-27 03:42] LABS: Cholesterol 163 mg/dL (<200); HDL Cholesterol 44 mg/dL (40-60); LDL Cholesterol,Calculated 102 mg/dL (0-99); Triglycerides 86 mg/dL (<150)
[2019-01-27] MEDS: ALBUTEROL NEBULIZED 2.5 MG/3 ML INHALATION PRN ×2 (07:32→19:47)
[2019-01-27] MEDS: NAPROXEN 250 MG TAB PO SCH ×2 (07:44→17:16)
--- NOTE | 2019-01-27 08:45 | P.CRDCN ---
History of Present Illness Consult date: 01/27/19 Chief complaint: chest pain History of present illness: this is a very pleasant 53-year-old female patient who sees Dr. Arenas in the office as an outpatient with a past medical history significant for history of smoking as well as significant family history of coronary artery disease resented to the hospital complaining of chest discomfort. The patient was here seen on the observational unit on January [id number] when she was admitted with a chest discomfort and ruled out for acute coronary event. At that point the patient was discharged home because we pulled her medical records from the office and it seems that she underwent stress echocardiogram in October 2018 came in to be unremarkable and the patient was discharged in stable medical condition. She presented back to the hospital complaining of chest discomfort. The patient described the discomfort as a pressure, in the mid of the chest, without any radiation, and without any associated symptoms. The EKG this time revealed sinus rhythm without any significant ST or T-wave abnormalities. The chest x-ray did not show any acute abnormalities. She underwent a CTA of the chest which showed no evidence of pulmonary embolism but it did show degenerative changes in the spine. The blood work came in to be unremarkable. The troponin came in to be unremarkable. Giving her recurrent chest discomfort, and giving her significant history of smoking and significant family history of coronary artery disease, I did advise the patient to undergo coronary angiogram for definitive diagnosis. 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 JOHANNE LUNG MASS CURRENTLY. STATED HAD A PNE VACCINE APPROX 3 YEARS AGO NOT SURE OF DATE History of Any Multi-Drug Resistant Organisms: None Reported Past Surgical History: Tubal Ligation Additional Past Surgical History / Comment(s): TUBAL PREG. COLONOSCOPY.BX OF LT UPPER LUNG Past Anesthesia/Blood Transfusion Reactions: No Reported Reaction Past Psychological History: Anxiety, Depression, Panic Disorder Additional Psychological History / Comment(s): PT LIVES WITH HER SON, IS INDEPENDANT, NO MEDICAL EQUIPMENT, NO OUTSIDE SERVICES. HAS 2 STEPS INTO HOME LIVES ON ONE LEVEL. Smoking Status: Current every day smoker Past Alcohol Use History: None Reported Additional Past Alcohol Use History / Comment(s): SMOKED 35 PLUS YEARS, 1 PPD AVG, TRYING TO QUIT. Past Drug Use History: Marijuana Additional Drug Use History / Comment(s): OCC MARIJUANA - Past Family History Mother Family Medical History: Myocardial Infarction ([place]) Additional Family Medical History / Comment(s): SEVERAL WI'S,TORREY ONE IN HER L ASTE 40'S Father Family Medical History: COPD, Myocardial Infarction ([place]) Additional Family Medical History / Comment(s): EMPHYSEMA Medications and Allergies Home Medications Medication Instructions Recorded Confirmed Type Albuterol Inhaler [Ventolin Hfa 2 puff INHALATION RT-Q6H PRN 12/28/15 01/26/19 History Inhaler] Calcium Carbonate [Calcium] 600 mg PO BID-W/MEALS 12/28/15 01/26/19 History LORazepam [Ativan] 1 mg PO TID PRN 12/28/15 01/26/19 History HYDROcodone/APAP 5-325MG [Franklin 1 tab PO BID PRN 05/04/16 01/26/19 History 5-325] Beclomethasone Dip 80 Mcg/Puff 2 puff INHALATION RT-BID 01/11/19 01/26/19 History [Qvar 80 mcg] Naproxen 500 mg PO BID-W/MEALS 01/11/19 01/26/19 History Nicotine 21Mg/24Hr Patch [Habitrol] 21 mg TRANSDERM DAILY 01/26/19 01/26/19 History Allergies Allergy/AdvReac Type Severity Reaction Status Date / Time azithromycin [From Zithromax] Allergy Rash/Hives Verified 01/26/19 18:44 cephalexin [From Keflex] Allergy Rash/Hives Verified 01/26/19 18:44 Physical Exam Vitals: Vital Signs Temp Pulse Pulse Resp BP BP Pulse Ox 01/27/19 07:43 100 01/27/19 07:41 97.9 F 103 H 18 110/74 98 01/27/19 07:34 101 H 98 01/27/19 04:00 92 18 01/27/19 03:44 98.3 F 92 18 102/68 96 01/26/19 23:10 18 01/26/19 23:05 98.2 F 88 18 104/66 96 01/26/19 20:00 97.8 F 95 18 104/69 97 01/26/19 19:25 17 01/26/19 19:24 98.0 F 94 18 98/72 97 01/26/19 18:00 92 17 119/65 96 01/26/19 17:00 98 18 115/78 96 01/26/19 16:00 105 H 16 118/89 96 01/26/19 15:36 103 H 01/26/19 15:28 105 H 01/26/19 15:00 112 H 17 121/82 94 L 01/26/19 14:45 97.8 F 126 H 20 106/76 97 Intake and Output 01/26/19 01/27/19 01/27/19 22:59 06:59 14:59 Other: # Voids 1 Weight 52.163 kg - Constitutional General appearance: no acute distress - Respiratory Respiratory: bilateral: CTA - Cardiovascular Rhythm: regular Heart sounds: normal: S1, S2 Results 01/26/19 15:27 01/26/19 15:27 Cardiac Enzymes 01/26/19 01/26/19 01/26/19 Range/Units 15:27 15:27 21:30 AST 19 (14-36) U/L Troponin I <0.012 <0.012 (0.000-0.034) ng/mL 01/27/19 Range/Units 03:03 AST (14-36) U/L Troponin I <0.012 (0.000-0.034) ng/mL Coagulation 01/26/19 Range/Units 15:27 PT 10.6 (9.0-12.0) sec APTT 26.3 (22.0-30.0) sec Lipids 01/27/19 Range/Units 03:06 Triglycerides 86 (<150) mg/dL Cholesterol 163 (<200) mg/dL HDL Cholesterol 44 (40-60) mg/dL CBC 01/26/19 Range/Units 15:27 WBC 7.9 (3.8-10.6) k/uL RBC 3.72 L (3.80-5.40) m/uL Hgb 12.3 (11.4-16.0) gm/dL Hct 36.3 (34.0-46.0) % Plt Count 233 (150-450) k/uL Comprehensive Metabolic Panel 01/26/19 Range/Units 15:27 Sodium 136 L (137-145) mmol/L Potassium 3.6 (3.5-5.1) mmol/L Chloride 103 (98-107) mmol/L Carbon Dioxide 23 (22-30) mmol/L BUN 19 H (7-17) mg/dL Creatinine 0.93 (0.52-1.04) mg/dL Glucose 126 H (74-99) mg/dL Calcium 9.8 (8.4-10.2) mg/dL AST 19 (14-36) U/L ALT 13 (4-34) U/L Alkaline Phosphatase 81 (38-126) U/L Total Protein 6.9 (6.3-8.2) g/dL Albumin 4.0 (3.5-5.0) g/dL Current Medications Generic Name Dose Route Start Last Admin Trade Name Freq PRN Reason Stop Dose Admin Hydrocodone Bitart/Acetaminophen 1 each 01/26/19 19:21 01/27/19 02:06 Franklin 5-325 PO 1 each BID PRN Administration Pain Albuterol Sulfate 2.5 mg 01/26/19 19:21 01/27/19 07:32 Ventolin Nebulized INHALATION 2.5 mg RT-Q6H PRN Administration Shortness Of Breath Aspirin 325 mg 01/27/19 09:00 Aspirin PO DAILY [facility] Calcium Carbonate/Glycine 500 mg 01/27/19 07:30 01/27/19 03:09 Tums PO 500 mg BID-W/MEALS JACKIE Administration Enoxaparin Sodium 40 mg 01/27/19 09:00 Lovenox SQ DAILY [facility] Fluticasone Propionate 2 puff 01/26/19 20:00 01/27/19 07:32 Flovent 110 Mcg Inhaler INHALATION 2 puff RT-BID JACKIE Administration Lorazepam 1 mg 01/26/19 19:21 01/27/19 02:09 Ativan PO 1 mg TID PRN Administration Anxiety Naproxen 500 mg 01/27/19 07:30 01/27/19 07:44 Naprosyn PO 500 mg BID-W/MEALS JACKIE Administration Nicotine 1 patch 01/27/19 09:00 Habitrol 21mg/24hr Patch TRANSDERM DAILY [facility] Nitroglycerin 0.4 mg 01/26/19 19:17 Nitrostat SUBLINGUAL Q5M PRN Chest Pain Nitroglycerin 1 inch 01/27/19 00:00 01/27/19 06:03 Nitro-Bid Oint TOPICAL Not Given Q6HR JACKIE Intake and Output 01/26/19 01/27/19 01/27/19 22:59 06:59 14:59 Other: # Voids 1 Weight 52.163 kg 01/26/19 15:27 01/26/19 15:27 Assessment and Plan Assessment: assessment #1 recurrent chest discomfort #2 significant history of smoking #3 significant family history of coronary artery disease Plan #1 I did advise proceeding with coronary angiogram for definitive diagnosed as giving the patient risk factor of smoking as well as significant family history of coronary artery disease. The procedure in details including the risks, benefits, and alternative was explained to the patient. Thank you for allowing us participate in her care and we will continue following up with the patient
[2019-01-27] MEDS: ASPIRIN 325 MG TAB PO SCH (08:51)
[2019-01-27] MEDS ORDERED: HEPARIN SODIUM 1,000 UN/ML (10ML VL) ONE (09:07)
[2019-01-27] MEDS ORDERED: VERAPAMIL 2.5 MG/ML 2 ML AMP ONE (09:08)
[2019-01-27] MEDS ORDERED: SODIUM CHLORIDE 0.9% 1,000 ML in EMPTY BAG 1 BAG IV ONE (09:16)
[2019-01-27] MEDS ORDERED: LIDOCAINE 1% INJ 10MG/ML (20 ML MDV) ONE (09:17)
[2019-01-27] MEDS ORDERED: IV FLUID CONTINUATION 950 ML IV ONE (09:18)
[2019-01-27] MEDS ORDERED: MIDAZOLAM 2 MG/2 ML VIAL IVP ONE (09:22)
[2019-01-27] MEDS ORDERED: LIDOCAINE 1% INJ 10MG/ML (20 ML MDV) SQ ONE (09:24)
[2019-01-27] MEDS: VERAPAMIL SYRINGE (5 MG/10 ML) INTRAARTER ONE ×2 (09:25→09:37)
[2019-01-27] MEDS ORDERED: HEPARIN SODIUM 1,000 UN/ML (10ML VL) IV ONE (09:25)
[2019-01-27] MEDS ORDERED: IOPAMIDOL-370 125ML BTL INJ ONE (09:37)
[2019-01-27] MEDS ORDERED: RX INFO: IV CONTRAST WAS GIVEN 1 EACH MISC MISCELLANE PRN (09:40)
[2019-01-27] MEDS ORDERED: SODIUM CHLORIDE 0.9% 1,000 ML IV SCH (09:45)
--- NOTE | 2019-01-27 10:30 | CC ---
CARDIAC CATHETERIZATION REPORT DATE OF SERVICE: January 27, 2019 PERFORMING PHYSICIAN: Joey Marinelli MD. PROCEDURE PERFORMED: Selective right and left coronary angiogram. INDICATION: This is a 53-year-old female patient with history of smoking and very significant family history of coronary artery disease who is under a lot of stress lately because of her daughter. She presented back to the hospital with chest discomfort. She was admitted to the hospital a few weeks ago with chest discomfort and she was discharged home in stable medical condition. As an outpatient, she underwent a stress test and that came in to be unremarkable. Because of that, she was discharged home. She came back to the hospital with chest discomfort and ruled out for acute coronary event. Because of the recurrent chest discomfort, I did advise proceeding with coronary angiogram. APPROACH: Right radial artery. COMPLICATION: None. LEVEL OF SEDATION: Moderate sedation with sedation length of 11 minutes. PROCEDURE DESCRIPTION: After obtaining an informed consent, the patient was brought to the cardiac dairy lab technician. The right radial artery was cannulated using micropuncture technique, the micropuncture wire passed easily then I placed a 5-Slovak sheath. I did give the patient 2 mg of verapamil IA and 5000 units of heparin IV. I did selective right and left coronary angiogram using JR4 and JL3.5 catheters. I did not perform left heart catheterization. The procedure was completed without any complication. SELECTIVE CORONARY ANGIOGRAM: 1. The right coronary artery is a large caliber vessel. It is a dominant vessel and appeared to be angiographically normal. It distally bifurcates into PDA and PLV branches both appeared to be angiographically normal. In the midportion, it gives rise into an acute marginal branch which seems to be normal. 2. The left main is aneurysmal and measured about 11.3 mm. Bifurcates into LCX and LAD. 3. The LCX is a large caliber vessel and it is a nondominant vessel. The left circumflex appeared to have mild disease in the midportion. It gives rise into OM branch in the mid to distal portion which bifurcates into 2 subbranches and the OM1 appeared to be angiographically normal. 4. The LAD: The proximal LAD appeared to be angiographically normal. It gives rise into the first diagonal branch which is a large diagonal with mild to moderate disease in the proximal portion. The mid LAD and distal LAD appeared to be angiographically normal. CONCLUSION: 1. 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 2. Intermediate disease involving the proximal first diagonal branch of the LAD which is a large diagonal. POSTPROCEDURE MANAGEMENT: 1. Giving the above anatomy, I did recommend maximized medical treatment. 2. Follow up with the patient. LESLIE / NIRAJ: [id number] /
[2019-01-27] MEDS: NICOTINE 21MG/24HR PATCH TRANSDERM SCH (10:34)
[2019-01-27] MEDS: ENOXAPARIN 40 MG/0.4 ML SYRINGE SQ SCH (10:34)
--- NOTE | 2019-01-27 20:52 | HP ---
HISTORY AND PHYSICAL CHIEF COMPLAINT: Chest pain. HISTORY OF PRESENT ILLNESS: This is another of many recent admissions regarding chest pain for this 53-year-old asthenic and depressed white female with severe COPD. Cardiac studies have been negative today. She comes back in with the same complaints and normal enzymes and EKGs. REVIEW OF SYSTEMS: She has had no fever, cough, hemoptysis, purulent sputum production, pleurisy, nausea, vomiting, hematemesis, melena, hematochezia, jaundice, renal failure, dysuria, frequency, urgency, diabetes, etc. Past medical history, family history, personal and social histories are unremarkable. ALLERGIES: She is ALLERGIC TO CEPHALOSPORINS AND MACROLIDES. MEDICATIONS: She is currently on naproxen, Qvar, lorazepam, albuterol, Zofran, Vicodin, and calcium. Personal and social histories are unchanged. She continues to smoke heavily but does not drink. PHYSICAL EXAMINATION: The blood pressure is 120/80 with a pulse of 120 and regular, respirations 16 and she is afebrile. In general, she appeared to be asthenic and depressed in appearance. Skin was slightly pale. Head, ears, eyes, nose, mouth, and throat were normal. Neck veins are not distended. Thyroid is not enlarged. Chest demonstrates slight increase in the AP diameter and very poor breath sounds throughout. No significant rales or rhonchi. There is no wheezing. Cardiac exam is normal. Sinus tachycardia and there are no murmurs or extra sounds. Abdomen is flat, soft and no masses or visceromegaly. Extremities are normal. Neurologically, she is intact. IMPRESSION: She is admitted to the hospital with diagnoses: 1. Chest pain. 2. Chronic obstructive pulmonary disease. 3. Depression. PLAN: 1. Bed rest. 2. IV fluids. 3. Consult with Cardiology. MMODL / IJN: [id number] /
--- NOTE | 2019-01-27 20:59 | PN ---
PROGRESS NOTE DATE OF SERVICE: 01/27/2019 CHIEF COMPLAINT: Chest pain. HISTORY OF PRESENT ILLNESS: This lady is still complaining of anterior chest pain. Studies have been negative so far. She has been seen by Cardiology and she is going for cardiac cath. PHYSICAL EXAMINATION: CHEST: Clear, although breath sounds are poor. Cardiac exam is normal. The abdomen is flat, soft, nontender. Extremities: Normal. IMPRESSION: 1. Chest pain, unexplained. 2. Chronic obstructive pulmonary disease. 3. Depression. PLAN: Cardiac cath today. MMODL / IJN: [id number] /
[2019-01-28] MEDS: LORazepam 1 MG TAB PO PRN ×2 (02:52→10:54)
[2019-01-28] MEDS: NITROGLYCERIN OINT 1 INCH/GM PACKET TOPICAL SCH (05:27)
--- NOTE | 2019-01-28 07:00 | P.PN ---
Subjective Progress Note Date: 01/28/19 Principal diagnosis: Chest pain This is a very pleasant 53-year-old female patient who sees Dr. Arenas in the office as an outpatient with history of smoking and family history of coronary artery disease who was admitted to the hospital with a chest discomfort. This is her second admission within the last few weeks. As an outpatient she underwent a stress test and that came in to be unremarkable. Because she continues to have a chest discomfort I performed a coronary angiogram on her yesterday. The coronary angiogram revealed aneurysmal dilation of the left main coronary artery which was measured 7 mm a long was mild to moderate disease involving the first diagonal branch of the LAD. Maximize medical treatment was advised. The patient was seen this morning. She stated that her chest discomfort is better. She denies any shortness of breath. Currently she is on aspirin which I would continue and I am going to add statin to the current medical regimen in view of the process of coronary artery disease. From the cardiac vascular standpoint overview, the patient can be discharged home. The right radial site seems to be soft and nontender with good pulse. Objective - Vital Signs Vital signs: Vital Signs Temp 97.4 F L 01/27/19 23:15 Pulse 90 01/27/19 23:15 Resp 18 01/27/19 23:15 BP 101/63 01/27/19 23:15 Pulse Ox 96 01/27/19 23:15 Intake & Output 01/27/19 01/27/19 01/28/19 06:59 18:59 06:59 Intake Total 100 222 Balance 100 222 Weight 52.163 kg Intake: IV 100 Oral 222 Other: # Voids 1 1 1 - Constitutional General appearance: Present: no acute distress - Respiratory Respiratory: bilateral: CTA - Cardiovascular Rhythm: regular Heart sounds: normal: S1, S2 - Labs CBC & Chem 7: 01/26/19 15:27 01/26/19 15:27 Assessment and Plan Assessment: assessment #1 chest discomfort which has improved #2 intermediate coronary artery disease #3 aneurysmal left main coronary artery #4 significant history of smoking Plan #1 smoking cessation #2 continue aspirin. Add statin to the current medical regimen #3 from the cardiac standpoint, the patient can be discharged home and follow-up with Dr. Dr. Arenas Thank you for allowing us participate in her care
[2019-01-28] MEDS: FLUTICASONE 110 MCG INHALER INHALATION SCH ×2 (07:07→07:24)
[2019-01-28] MEDS: ALBUTEROL NEBULIZED 2.5 MG/3 ML INHALATION PRN (07:07)
[2019-01-28 07:20] VITALS: BP 120/80; TEMP 97.8
[2019-01-28 07:25] VITALS: PULSE 89
[2019-01-28] MEDS: ASPIRIN 325 MG TAB PO SCH (07:34)
[2019-01-28] MEDS: NAPROXEN 250 MG TAB PO SCH (07:34)
[2019-01-28] MEDS: CALCIUM CARBONATE 500 MG CHEWABLE PO SCH (07:34)
[2019-01-28] MEDS: HYDROcodone/APAP 5-325MG 1 EACH TAB PO PRN (07:34)
[2019-01-28] MEDS: ENOXAPARIN 40 MG/0.4 ML SYRINGE SQ SCH (07:34)
[2019-01-28] MEDS: NICOTINE 21MG/24HR PATCH TRANSDERM SCH (10:18)
[2019-01-28] MEDS ORDERED: ATORVASTATIN 80 MG TAB PO SCH (21:00)
--- NOTE | 2019-01-28 21:31 | DS ---
DISCHARGE SUMMARY CHIEF COMPLAINT: Chest pain. HISTORY OF PRESENT ILLNESS/PHYSICAL EXAMINATION: Details of this lady's history and physical can be found in the initial workup. LABORATORY STUDIES: While she was in the hospital, she had laboratory studies, details of which can be found in the laboratory section of her chart. COURSE IN HOSPITAL: After admission, she was placed on bedrest, started on intravenous fluids and seen by Cardiology. She was taken for cardiac cath, which apparently did not demonstrate any significant pathology or critical stenoses. She was doing well. It was felt that she could go home on . She will go home on usual activity, diet, medications and will follow up in several days. FINAL DIAGNOSES: 1. Chest pain. 2. Chronic obstructive pulmonary disease. 3. Anxiety. 4. Depression. OPERATIONS: Cardiac cath. CONSULTATION: Cardiology. She is improved. MMODL / AMBROCION: [id number] /
== END 2019-01-28 11:50 | disposition home or self-care (01) ==
LOC: EC 14:41 → 1SOBS 19:17
PROVIDERS: ADMIT Family Medicine; ATTEND Family Medicine
DX: R07.89 Other chest pain (principal); J44.9 Chronic obstructive pulmonary disease, unspecified; F17.200 Nicotine dependence, unspecified, uncomplicated; F32.9 Major depressive disorder, single episode, unspecified; F41.0 Panic disorder [episodic paroxysmal anxiety]; F41.9 Anxiety disorder, unspecified; I25.10 Atherosclerotic heart disease of native coronary artery without angina pectoris; Z79.82 Long term (current) use of aspirin; Z82.49 Family history of ischemic heart disease and other diseases of the circulatory system; Z82.5 Family history of asthma and other chronic lower respiratory diseases; Z79.891 Long term (current) use of opiate analgesic; Z79.899 Other long term (current) drug therapy; Z88.1 Allergy status to other antibiotic agents
CPT/HCPCS: 93005 ×2; 96374; 99285; 36415; 94640 ×5; 94760; 93454; 85379; 83880; 80061; 80053; 83735; 84484 ×2; 85025; 85610; 85730; 71046; 71275; G0378 ×3; C1769; C1894; S4990 ×2; J2250; J2060; J2001; J1650 ×2; J1644; Q9967 ×2

== ENCOUNTER → 2019-02-14 | Outpatient (CLI) | payer OTHER ==
--- NOTE | 2019-02-17 02:29 | MR ---
EXAMINATION TYPE: MR abdomen wo/w con DATE OF EXAM: 02/14/2019 COMPARISON: HISTORY: Lesion of Liver CONTRAST: Standard multiplanar, multisequence MRI departmental protocol utilizing 5 mL intravenous Gadavist pelon olinium contrast. Liver has normal size and contour. Spleen is intact. Kidneys have normal size and contour. There is n o hydronephrosis. There is no evidence of a pancreatic mass. Pancreatic duct appears normal. The bile ducts are not dilated. On the T2 images there is a 4.8 cm rounded high signal lesion in the posterior caudate lobe of the li mariana. There is similar high signal 10 mm focus in the superior right lobe of the liver. The gallbladde r appears normal. There is no ascites. There is no pleural effusion. Contrast images show enhancement of these 2 liver lesions consistent with hemangiomas. There is no pericardial effusion. Heart size is fairly normal. There is no evidence of retroperitonea l adenopathy. Kidneys show normal contrast enhancement. Kidneys have normal size and contour. There i s no hydronephrosis. IMPRESSION: There are 2 liver lesions as described above which have features of hemangiomas and appear unchanged compared to old CT scan of 05/04/2016.
== END | disposition home or self-care (01) ==
LOC: RADMRIMAIN 12:59
PROVIDERS: ATTEND Nurse Practitioner
DX: K76.9 Liver disease, unspecified (principal)
CPT/HCPCS: 74183; A9585

== ENCOUNTER → 2019-02-26 | Outpatient (CLI) | payer OTHER ==
[2019-02-26 16:09] LABS: Basophils # (A) 0.1 k/uL (0-0.2); Basophils % (A) 1 %; Eosinophils # (A) 0.2 k/uL (0-0.7); Eosinophils % (A) 3 %; HCT 38.6 % (34.0-46.0); HGB 12.3 gm/dL (11.4-16.0); Lymphocytes # (A) 1.5 k/uL (1.0-4.8); Lymphocytes % (A) 24 %; MCH 31.9 pg (25.0-35.0); MCHC 31.8 g/dL (31.0-37.0); MCV 100.5 fL (80.0-100.0); Mean Platelet Volume 7.6; Monocytes # (A) 0.3 k/uL (0-1.0); Monocytes % (A) 5 %; Neutrophils # (A) 3.9 k/uL (1.3-7.7); Neutrophils % (A) 65 %; Platelet Count 317 k/uL (150-450); RBC 3.84 m/uL (3.80-5.40); RDW 12.9 % (11.5-15.5)
[2019-02-26 16:16] LABS: Prothrombin Time 10.1 sec (9.0-12.0)
== END | disposition home or self-care (01) ==
LOC: LABWHC1 15:16
PROVIDERS: ATTEND Nurse Practitioner
DX: K76.9 Liver disease, unspecified (principal)
CPT/HCPCS: 36415; 85025; 85610

== ENCOUNTER → 2019-03-06 | Outpatient (CLI) | payer OTHER ==
[2019-03-06 16:31] LABS: Alpha Fetoprotein, Tumor Mkr <2.5 ng/mL (0.0-7.9)
[2019-03-06 17:01] LABS: Hepatitis A Antibody IgM Non-Reactive (Non-Reactive); Hepatitis B Core IgM Non-Reactive (Non-Reactive); Hepatitis B Surface Antigen Non-Reactive (Non-Reactive); Hepatitis C IgG Antibody Non-Reactive (Non-Reactive)
== END | disposition home or self-care (01) ==
LOC: LABWHC1 10:43
PROVIDERS: ATTEND Nurse Practitioner
DX: K76.9 Liver disease, unspecified (principal)
CPT/HCPCS: 36415; 80074; 82105

== ENCOUNTER → 2019-03-12 | Outpatient (CLI) | payer OTHER ==
[2019-03-12 12:09] LABS: ALT 20 U/L (8-44); AST 24 U/L (13-35); Chol/HDL Ratio 2.21; Cholesterol 128 mg/dL (0-200); Triglycerides <50.0 mg/dL (0.0-149.0)
== END | disposition home or self-care (01) ==
LOC: LABWHC1 06:39
PROVIDERS: ATTEND Internal Medicine Cardiovascular Disease
DX: E78.5 Hyperlipidemia, unspecified (principal); I25.10 Atherosclerotic heart disease of native coronary artery without angina pectoris
CPT/HCPCS: 36415; 80061; 84450; 84460

== ENCOUNTER 2020-07-07 20:05 | Emergency (ER) | payer MEDICARE, OTHER ==
[2020-07-07 20:17] VITALS: RESP 18
[2020-07-07] MEDS ORDERED: SODIUM CHLORIDE 0.9% 500 ML 500 ML IV STA (20:54)
--- NOTE | 2020-07-07 21:10 | XR ---
EXAMINATION TYPE: XR chest 2V DATE OF EXAM: 07/07/2020 COMPARISON: 01/26/2019 HISTORY: Fever TECHNIQUE: FINDINGS: There is pulmonary hyperinflation and flattening of the diaphragm. Heart size is normal. Th ere is thoracolumbar kyphotic deformity with anterior wedging of T10 vertebra 50%. There are no hilar masses. IMPRESSION: Emphysema. No acute lung disease. There is increased kyphotic deformity compared to old e xam.
--- NOTE | 2020-07-07 21:25 | ED ---
General Adult HPI - General Chief complaint: Fever Stated complaint: fever Time Seen by Provider: 07/07/20 20:49 Source: patient, RN notes reviewed, old records reviewed Mode of arrival: ambulatory Limitations: no limitations - History of Present Illness Initial comments: 54-year-old female presenting for evaluation of fever which is been present for the past 4 days. She's had some mild nausea with no additional complaints. Fever has been measured at home. She does take [place] for chronic pain which she had taken prior to arrival today. She denies cough or URI symptoms. She has a mild exertional dyspnea which she states is at baseline secondary to her COPD. No dysuria or hematuria. No significant abdominal pain. She has not been vaccinated against coronavirus. - Related Data Home Medications Medication Instructions Recorded Confirmed Albuterol Inhaler (Mhu) [Ventolin 2 puff INHALATION RT-Q6H PRN 12/28/15 01/26/19 Hfa Inhaler (Mhu)] Calcium Carbonate [Calcium] 600 mg PO BID-W/MEALS 12/28/15 01/26/19 LORazepam [Ativan] 1 mg PO TID PRN 12/28/15 01/26/19 HYDROcodone/APAP 5-325MG [[place] 1 tab PO BID PRN 05/04/16 01/26/19 5-325] Beclomethasone Dip 80 Mcg/Puff 2 puff INHALATION RT-BID 01/11/19 01/26/19 [Qvar 80 mcg] Naproxen 500 mg PO BID-W/MEALS 01/11/19 01/26/19 Nicotine 21Mg/24Hr Patch [Habitrol] 21 mg TRANSDERM DAILY 01/26/19 01/26/19 Previous Rx's Medication Instructions Recorded Sulfamethox-Tmp 800-160Mg [Bactrim 1 tab PO Q12HR #28 tab 07/07/20 DS 800-160 mg] Allergies Allergy/AdvReac Type Severity Reaction Status Date / Time azithromycin [From Zithromax] Allergy Rash/Hives Verified 07/07/20 20:17 cephalexin [From Keflex] Allergy Rash/Hives Verified 07/07/20 20:17 Review of Systems ROS Statement: Those systems with pertinent positive or pertinent negative responses have been documented in the HPI. ROS Other: All systems not noted in ROS Statement are negative. 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 JOHANNE LUNG MASS CURRENTLY. STATED HAD A PNE VACCINE APPROX 3 YEARS AGO NOT SURE OF DATE History of Any Multi-Drug Resistant Organisms: None Reported Past Surgical History: Tubal Ligation Additional Past Surgical History / Comment(s): TUBAL PREG. COLONOSCOPY.BX OF LT UPPER LUNG Past Anesthesia/Blood Transfusion Reactions: No Reported Reaction Past Psychological History: Anxiety, Depression, Panic Disorder Smoking Status: Current every day smoker Past Alcohol Use History: None Reported Past Drug Use History: Marijuana - Past Family History Mother Family Medical History: Myocardial Infarction (CT) Additional Family Medical History / Comment(s): SEVERAL CT'S,TORREY ONE IN HER LASTE 40'S Father Family Medical History: COPD, Myocardial Infarction (CT) Additional Family Medical History / Comment(s): EMPHYSEMA General Exam Limitations: no limitations General appearance: alert, in no apparent distress Head exam: Present: atraumatic, normocephalic Eye exam: Present: normal appearance, PERRL ENT exam: Present: normal exam, normal oropharynx Neck exam: Present: normal inspection. Absent: tenderness, meningismus Respiratory exam: Present: normal lung sounds bilaterally. Absent: respiratory distress, wheezes Cardiovascular Exam: Present: regular rate, normal rhythm GI/Abdominal exam: Present: soft. Absent: distended, tenderness, guarding Extremities exam: Present: normal inspection, normal capillary refill. Absent: pedal edema Neurological exam: Present: alert, oriented X3, CN II-XII intact. Absent: motor sensory deficit Psychiatric exam: Present: normal affect, normal mood Skin exam: Present: warm, dry, intact. Absent: cyanosis, diaphoretic Course Vital Signs 07/07/20 20:12 Temperature 99.4 F Pulse Rate 109 H Respiratory 18 Rate Blood Pressure 127/82 O2 Sat by Pulse 96 Oximetry Medical Decision Making - Medical Decision Making 54-year-old female with fever. No specific localizing symptoms. Workup is initiated for fever, coronavirus negative, chest x-ray showing chronic emphysema without acute findings. She has a mild leukocytosis. Normal CMP, she has a urinalysis which is consistent with UTI. Urine culture pending. I did offer admission to this patient she prefers discharge. She'll be initiated on Bactrim. Awaiting culture results. Return parameters discussed. - Lab Data Result diagrams: 07/07/20 21:14 07/07/20 21:14 Lab Results 07/07/20 07/07/20 07/07/20 Range/Units 21:14 21:14 21:14 WBC 13.3 H (3.8-10.6) k/uL RBC 4.21 (3.80-5.40) m/uL Hgb 14.0 (11.4-16.0) gm/dL Hct 40.6 (34.0-46.0) % MCV 96.4 (80.0-100.0) fL MCH 33.3 (25.0-35.0) pg MCHC 34.5 (31.0-37.0) g/dL RDW 12.5 (11.5-15.5) % Plt Count 154 (150-450) k/uL MPV 7.6 Neutrophils % 84 % Lymphocytes % 8 % Monocytes % 5 % Eosinophils % 2 % Basophils % 0 % Neutrophils # 11.1 H (1.3-7.7) k/uL Lymphocytes # 1.0 (1.0-4.8) k/uL Monocytes # 0.7 (0-1.0) k/uL Eosinophils # 0.3 (0-0.7) k/uL Basophils # 0.0 (0-0.2) k/uL Sodium 134 L (137-145) mmol/L Potassium 3.8 (3.5-5.1) mmol/L Chloride 104 (98-107) mmol/L Carbon Dioxide 23 (22-30) mmol/L Anion Gap 7 mmol/L BUN 18 H (7-17) mg/dL Creatinine 0.84 (0.52-1.04) mg/dL Est GFR (CKD-EPI)AfAm 90 (>60 ml/min/1.73 sqM) Est GFR (CKD-EPI)NonAf 78 (>60 ml/min/1.73 sqM) Glucose 120 H (74-99) mg/dL Plasma Lactic Acid Fredis (0.7-2.0) mmol/L Calcium 9.8 (8.4-10.2) mg/dL Total Bilirubin 0.3 (0.2-1.3) mg/dL AST 26 (14-36) U/L ALT 21 (4-34) U/L Alkaline Phosphatase 145 H (38-126) U/L Total Protein 6.8 (6.3-8.2) g/dL Albumin 3.8 (3.5-5.0) g/dL Urine Color Urine Appearance (Clear) Urine pH (5.0-8.0) Ur Specific [place] (1.001-1.035) Urine Protein (Negative) Urine Glucose (UA) (Negative) Urine Ketones (Negative) Urine Blood (Negative) Urine Nitrite (Negative) Urine Bilirubin (Negative) Urine Urobilinogen (<2.0) mg/dL Ur Leukocyte Esterase (Negative) Urine RBC (0-5) /hpf Urine WBC (0-5) /hpf Urine WBC Clumps (None) /hpf Ur Squamous Epith Cells (0-4) /hpf Urine Bacteria (None) /hpf Hyaline Casts (0-2) /lpf Urine Mucus (None) /hpf Urine Yeast (Budding) (None) /hpf Coronavirus (PCR) Not Detected (Not Detectd) 07/07/20 07/07/20 Range/Units 21:14 21:37 WBC (3.8-10.6) k/uL RBC (3.80-5.40) m/uL Hgb (11.4-16.0) gm/dL Hct (34.0-46.0) % MCV (80.0-100.0) fL MCH (25.0-35.0) pg MCHC (31.0-37.0) g/dL RDW (11.5-15.5) % Plt Count (150-450) k/uL MPV Neutrophils % % Lymphocytes % % Monocytes % % Eosinophils % % Basophils % % Neutrophils # (1.3-7.7) k/uL Lymphocytes # (1.0-4.8) k/uL Monocytes # (0-1.0) k/uL Eosinophils # (0-0.7) k/uL Basophils # (0-0.2) k/uL Sodium (137-145) mmol/L Potassium (3.5-5.1) mmol/L Chloride (98-107) mmol/L Carbon Dioxide (22-30) mmol/L Anion Gap mmol/L BUN (7-17) mg/dL Creatinine (0.52-1.04) mg/dL Est GFR (CKD-EPI)AfAm (>60 ml/min/1.73 sqM) Est GFR (CKD-EPI)NonAf (>60 ml/min/1.73 sqM) Glucose (74-99) mg/dL Plasma Lactic Acid Fredis 0.9 (0.7-2.0) mmol/L Calcium (8.4-10.2) mg/dL Total Bilirubin (0.2-1.3) mg/dL AST (14-36) U/L ALT (4-34) U/L Alkaline Phosphatase (38-126) U/L Total Protein (6.3-8.2) g/dL Albumin (3.5-5.0) g/dL Urine Color Yellow Urine Appearance Cloudy H (Clear) Urine pH 6.0 (5.0-8.0) Ur Specific [place] 1.019 (1.001-1.035) Urine Protein 1+ H (Negative) Urine Glucose (UA) Negative (Negative) Urine Ketones Negative (Negative) Urine Blood Moderate H (Negative) Urine Nitrite Positive H (Negative) Urine Bilirubin Negative (Negative) Urine Urobilinogen <2.0 (<2.0) mg/dL Ur Leukocyte Esterase Large H (Negative) Urine RBC 29 H (0-5) /hpf Urine WBC >182 H (0-5) /hpf Urine WBC Clumps Moderate H (None) /hpf Ur Squamous Epith Cells <1 (0-4) /hpf Urine Bacteria Many H (None) /hpf Hyaline Casts 3 H (0-2) /lpf Urine Mucus Moderate H (None) /hpf Urine Yeast (Budding) Few H (None) /hpf Coronavirus (PCR) (Not Detectd) Disposition Clinical Impression: UTI (urinary tract infection) Disposition: HOME SELF-CARE Condition: Good Instructions (If sedation given, give patient instructions): Fever in Adults (ED), Urinary Tract Infection in Women (ED) Additional Instructions: Please monitor symptoms at home with anything worsens please return to the emergency department otherwise follow up with her primary care physician. Prescriptions: Sulfamethox-Tmp 800-160Mg [Bactrim DS 800-160 mg] 1 tab PO Q12HR #28 tab Is patient prescribed a controlled substance at d/c from ED?: No Referrals: Sebastián Claros MD [Primary Care Provider] - 1-2 days Time of Disposition: 22:48
[2020-07-07 21:27] LABS: Basophils % (A) 0 %; Eosinophils # (A) 0.3 k/uL (0-0.7); Eosinophils % (A) 2 %; HCT 40.6 % (34.0-46.0); Lymphocytes % (A) 8 %; MCH 33.3 pg (25.0-35.0); MCHC 34.5 g/dL (31.0-37.0); MCV 96.4 fL (80.0-100.0); Mean Platelet Volume 7.6; Monocytes # (A) 0.7 k/uL (0-1.0); Monocytes % (A) 5 %; Neutrophils # (A) 11.1 k/uL (1.3-7.7); Neutrophils % (A) 84 %; Platelet Count 154 k/uL (150-450); RBC 4.21 m/uL (3.80-5.40); RDW 12.5 % (11.5-15.5); WBC 13.3 k/uL (3.8-10.6)
[2020-07-07 21:36] LABS: Albumin 3.8 g/dL (3.5-5.0); Calcium 9.8 mg/dL (8.4-10.2); Potassium 3.8 mmol/L (3.5-5.1); Total Bilirubin 0.3 mg/dL (0.2-1.3); Total Protein 6.8 g/dL (6.3-8.2)
[2020-07-07 21:51] LABS: Appearance,Urine Cloudy (Clear); Bacteria,Urine Many /hpf; Bilirubin,Urine Negative (Negative); Blood,Urine Moderate (Negative); Budding Yeast,Urine Few /hpf; Color,Urine Yellow; Glucose,Urine (UA) Negative (Negative); Hyaline Casts,Urine 3 /lpf (0-2); Ketones,Urine Negative (Negative); Leukocyte Esterase,Urine Large (Negative); Mucus,Urine Moderate /hpf; Nitrite,Urine Positive (Negative); Protein,Urine 1+ (Negative); RBC,Urine 29 /hpf (0-5); Specific Gravity,Urine 1.019 (1.001-1.035); Squamous Epithelial Cell,Urine <1 /hpf (0-4); Urobilinogen,Urine <2.0 mg/dL (<2.0); WBC,Urine >182 /hpf (0-5)
[2020-07-07] MEDS ORDERED: SULFAMETH-TMP DS STARTER PACK 2 TAB BTL PO STA (22:45)
[2020-07-07 23:01] VITALS: BP 118/82; PULSE 98; TEMP 99.3
== END 2020-07-07 23:12 | disposition home or self-care (01) ==
LOC: EC 20:05
DX: N39.0 Urinary tract infection, site not specified (principal); R11.0 Nausea; G89.29 Other chronic pain; J44.9 Chronic obstructive pulmonary disease, unspecified; M19.90 Unspecified osteoarthritis, unspecified site; F17.200 Nicotine dependence, unspecified, uncomplicated; F12.90 Cannabis use, unspecified, uncomplicated; F41.9 Anxiety disorder, unspecified; F32.9 Major depressive disorder, single episode, unspecified; Z20.822 Contact with and (suspected) exposure to COVID-19; Z79.1 Long term (current) use of non-steroidal anti-inflammatories (NSAID); Z79.51 Long term (current) use of inhaled steroids
CPT/HCPCS: 36415; 71046; 80053; 81001; 83605; 85025; 87086; 87635; 96360; 96361; 99283

== ENCOUNTER → 2020-11-01 | Outpatient (CLI) | payer MEDICARE, OTHER ==
--- NOTE | 2020-11-01 12:41 | CT ---
EXAMINATION TYPE: CT chest wo con DATE OF EXAM: 11/01/2020 COMPARISON: 01/26/2019 HISTORY: 55-year-old female R9 1.1, Follow up nodule. TECHNIQUE: Contiguous axial scanning of the chest without IV contrast. Coronal and sagittal reconstru ctions performed. CT DLP: 125.4 mGycm Automated exposure control for dose reduction was used. FINDINGS: Heart normal size with trace anterior pericardial effusion which is unchanged. Additional pericardial fluid extends up into the pericardial recesses as seen previously as well. Borderline ectatic aortic root at 3.5 cm. Mild atherosclerotic arch calcifications with conventional arch vessel branching anatomy. There Small 5 mm hypodense nodule within the right lobe of the thyroid gland. No thoracic lymphadenopathy by CT size criteria. Bullous emphysema. Stable scarring anterior right upper and midlung. There is some calcification or p ostsurgical change along the left major fissure. Some focal thickening in the inferior lingula is unc hanged. Some irregular nodular thickening at the left midlung level measures 1.2 cm and appears increased. Posterior basilar strandy scarring redemonstrated. Stable 5 mm subpleural pulmonary nodule posterolateral right apex. Visualized upper abdomen shows nonobstructive right renal calculus measuring 7 mm and unchanged 4.6 c m central hepatic dome cyst adjacent to the hepatic IVC. Bones: Kyphotic deformity secondary to anterior wedge deformities of T9 and T10. Anterior height loss of T10 has progressed from 01/26/2019 though this appears to remain a chronic finding given the lack of any surrounding soft tissue swelling. IMPRESSION: 1. COPD WITH BULLOUS EMPHYSEMA. SCATTERED AREAS OF SCARRING AND EITHER SOME CALCIFICATION OR POSTSURG ICAL CHANGE AT THE LEFT MAJOR FISSURE. 2. AN AREA OF IRREGULAR NODULAR THICKENING LEFT MID LUNG APPEARS INCREASED, CURRENTLY MEASURING 1.2 C M. PROGRESSIVE SCARRING IS POSSIBLE. SIX-MONTH FOLLOW-UP RECOMMENDED TO REASSESS. 3. LOWER THORACIC KYPHOTIC DEFORMITY SECONDARY TO ANTERIOR WEDGE DEFORMITIES OF T9 AND T10. T10 ANTER IOR HEIGHT LOSS HAS PROGRESSED FROM 2018 BUT STILL APPEARS CHRONIC. CLINICALLY CORRELATE.
== END | disposition home or self-care (01) ==
LOC: RADCTMAIN 10:48
PROVIDERS: ATTEND Internal Medicine Pulmonary Disease
DX: J43.9 Emphysema, unspecified (principal); R91.8 Other nonspecific abnormal finding of lung field
CPT/HCPCS: 71250

== ENCOUNTER → 2023-11-29 | Outpatient (CLI) | payer MEDICARE ==
--- NOTE | 2023-11-30 07:52 | MM ---
Reason for Exam: Screening (asymptomatic). Last mammogram was performed 9 year(s) and 3 month(s) ago. Patient History: Menarche at age 11. First Full-Term at age 18. Right ovary removed at age 20. Postmenopausal. Risk Values: Ceci 5 year model risk: 1.3%. NCI Lifetime model risk: 6.6%. Prior Study Comparison: 11/10/2009 Bilateral Diagnostic Mammogram, [facility]. 05/16/2010 Left Diagnostic Mammogram, [facility]. 09/08/2014 Bilateral Diagnostic Mammogram, [facility]. Tissue Density: The breasts are heterogeneously dense, which may obscure small masses. Findings: Analyzed By CAD. Right breast: There is no suspicious group of microcalcifications or new suspicious mass. Benign-appearing calcifications right breast. Left breast: There is no suspicious group of microcalcifications or new suspicious mass. Benign-appearing calcifications left breast. Overall Assessment: Benign, BI-RAD 2 Management: Screening Mammogram of both breasts in [address] [facility] will attempt to contact patient to return for supplemental views and ultrasound if indicated. Patient should continue monthly self-breast exams. A clinical breast exam by your physician is recommended on an annual basis. This exam should not preclude additional follow-up of suspicious palpable abnormalities. Note on Ceci scores and lifetime risk: 1. A Ceci score greater than 3% is considered moderate risk. If this is the case, consider specialist referral to assess eligibility for a risk reducing agent. 2. If overall lifetime risk for the development of breast cancer is 20% or higher, the patient may qualify for future screening with alternating mammogram and breast MRI. [facility], , 11/30/2023 7:49 AM. Electronically signed and approved by: Denzel Welch DO
== END ==
LOC: RADMAMWWP 13:49
PROVIDERS: ATTEND Family Medicine
CPT/HCPCS: 77063; 77067